=== PATIENT | female | born 1995 | race Caucasian/White ===

== ENCOUNTER → 2017-05-27 16:26 | Outpatient (CLI) | payer BC, SELFPAY ==
[2017-05-27 15:14] VITALS: BP 116/79; BMI 23.4
[2017-05-27 17:35] LABS: AST(SGOT) 8 U/L (15-37); Alanine Aminotransfer ALT/SGPT 15 U/L (13-56); Albumin, Serum 3.8 g/dL (3.2-5.0); Alkaline Phosphatase 74 U/L (45-117); Anion Gap 8 (5-15); BUN 17 mg/dL (7-18); BUN/Creat Ratio 19.7 RATIO (10-20); Calcium,Total 8.6 mg/dL (8.5-10.1); Chloride 101 mmol/L (98-107); Creatinine, Serum 0.86 mg/dL (0.55-1.02); EST Glomerular Filtration Rate 89 mL/min (>60); Est Glom Filt Rate - Afr Amer 108 mL/min (>60); Globulin 3.7 g/dL (2.2-4.2); Glucose 279 mg/dL (74-106); Potassium 3.9 mmol/L (3.5-5.1); Protein, Total 7.5 g/dL (6.4-8.2); Sodium Level 137 mmol/L (136-145)
[2017-05-27 17:44] LABS: Hemoglobin A1c 11.1 % (4.2-6.3)
[2017-05-27 17:48] LABS: Microalbumin,Random Urine 9.6 mg/L (NO RANGE EST.); Microalbumin:Creatinine Ratio 27.8 mg/g CRE (<30 mg/g CRE)
== END ==
PROVIDERS: Visit Provider Nurse Practitioner
DX: E11.9 Type 2 diabetes mellitus without complications (principal)
CPT/HCPCS: 36415; 80053; 82043; 82570; 83036

== ENCOUNTER 2017-12-29 04:12 | Emergency (ER) | payer BC, SELFPAY ==
[2017-12-29 04:13] VITALS: BP 139/98; PULSE 103; RESP 15; TEMP 36.4; O2SAT 100; BMI 22.8
[2017-12-29 05:51] LABS: Bedside Glucose 224 mg/dL (70-110)
[2017-12-29 06:01] LABS: Bacteria 0 SEEN /hpf (None Seen); Mucous, Urine 0 SEEN /hpf (<or=2+); Red Blood Cells-Urine 0 SEEN /hpf (0-5)
[2017-12-29 06:26] LABS: Color, Urine Yellow (Yellow); Glucose, Dipstick 250 mg/dl (Normal); Internal QC Validated? YES +Cl - CLEAR BKGD; Ketone-Dipstick 5 mg/dl (Negative); Leukocyte Esterase-Dipstick 500 /ul (Negative); Nitrite-Dipstick Positive (Negative); Occult Blood-Urine 250 /ul (Negative); Pregnancy, Urine Negative Negative; Protein-Dipstick 500 mg/dl (Negative); Urine Bilirubin Dipstick Negative (Negative); Urine Clarity Cloudy (Clear); Urine Urobilinogen 1 mg/dl (Normal); Urine pH 6.5 (5.0 - 8.0)
[2017-12-29 06:59] LABS: Squamous Epithelial Cells - UA 0-5 SEEN /hpf (5-10); White Blood Cells >100 SEEN /hpf (0-5)
--- NOTE | 2017-12-29 07:20 | ED.VISSUMM ---
- ER Visit Summary Date of Service: 12/29/17 Chief Complaint: Abdominal pain History of Present Illness: The patient is a 22 F presenting with abdominal pain. She states this started tonight. She states the pain has now actually completely resolved. Pain was in the left flank. She had nausea associated with this. She denies vomiting. She denies fever. She has had mild diarrhea. Denies back pain. She has a history of insulin dependent diabetes. Physical Examination: Vitals are stable. Patient is afebrile. Alert no acute distress. HEENT exam is unremarkable. Neck is supple. Lungs are clear and equal bilaterally. Heart is regular rate and rhythm. Abdomen is soft nontender nondistended. No rebound or guarding Back: No CVA tenderness Extremities are unremarkable. Skin is warm and dry. Remainder of exam is unremarkable. Emergency Department Course and Treatment: Patient's pain is completely resolved. Urinalysis shows over 100 white blood cells, positive leukocyte, positive nitrite. HCG negative. Blood sugar was 224. She is feeling improved and is requesting to go home. She was given Macrobid. She has an insulin pump and is advised to continue to monitor her blood sugars at home. She is advised to return to the ED for any worsening complaints. Disposition: Discharge home Impression: UTI This note was generated with [employer] dictation software. It may contain incorrect words, spelling, and punctuation that were not noted in review of the chart prior to signing ED Disposition - Plan for ED Patient: Chief Complaint: Abd Pain Referrals: Jacqui Joaquin, [facility] [Primary Care Provider] -
--- NOTE | 2017-12-29 07:24 | ED.DEP ---
ED Disposition - Plan for ED Patient: Chief Complaint: Abd Pain Instructions: ED UTI Cystitis Female Prescriptions: Nitrofurantoin Macrocrystals [Macrobid] 100 mg PO Q12 #14 capsule Referrals: Jacqui Joaquin NP-C [Primary Care Provider] -
[2017-12-29] MEDS: Nitrofurantoin Macrocrystals 100 MG Capsule PO (07:33)
[2017-12-29 07:34] VITALS: BP 126/71; PULSE 107; O2SAT 98
== END 2017-12-29 07:35 | disposition home or self-care (01) ==
LOC: ED 05:27
PROVIDERS: Emergency Provider Emergency Medicine; PCP Nurse Practitioner
DX: N39.0 Urinary tract infection, site not specified (principal); E11.9 Type 2 diabetes mellitus without complications; Z79.4 Long term (current) use of insulin; Z96.41 Presence of insulin pump (external) (internal)
CPT/HCPCS: 81001; 81025; 82962; 99282

== ENCOUNTER 2018-09-16 20:27 | Observation (INO) | payer BC, SELFPAY ==
[2018-09-16 20:27] VITALS: BMI 23.4
[2018-09-16 20:29] VITALS: BP 119/65; BP 122/72; PULSE 114; PULSE 117; RESP 18; RESP 20; TEMP 36.8; O2SAT 100; BMI 23.3
--- NOTE | 2018-09-16 20:29 | EKG12_ITS ---
Test Reason : CP Blood Pressure : / mmHG Vent. Rate : 114 BPM Atrial Rate : 114 BPM P-R Int : 140 ms QRS Dur : 080 ms QT Int : 350 ms P-R-T Axes : 074 100 059 degrees QTc Int : 482 ms Sinus tachycardia Rightward axis Borderline ECG Confirmed by MUKUND CORTÉS, ZEYNEP ([id number]), food editor TAHMINA JIMÉNEZ ([id number]) on 09/22/2018 1:48:01 PM Referred By: DYLAN Confirmed By:ZEYNEP DUVAL MD
--- NOTE | 2018-09-16 20:30 | ED.RN ---
CALLED FOR EKG PER RN REQUEST, NO OLD EKGS IN MUSE
[2018-09-16 20:40] LABS: Bedside Glucose > 500 mg/dL (70-110)
--- NOTE | 2018-09-16 21:02 | ED.DCSUM_ITS ---
- ER Visit Summary Date of Service: 09/16/18 Chief Complaint: Elevated blood sugar History of Present Illness: The patient is a 23 F history of insulin pen diabetes. Patient states she has not been watching her blood sugars as well as she should. She does take insulin but may have recently been noncompliant with that she should. Her blood sugars today have been over 400. Typically her blood sugars run around 200. She denies any nausea, vomiting, diarrhea or fever. No dysuria. No abdominal pain. Her last menstrual. Was 3 weeks ago. Physical Examination: Young female no acute distress vital signs are stable afebrile. She does not look septic or toxic. H EENT exam unremarkable. Moist weeks membranes. Neck nontender no lymphadenopathy. Lungs to auscultation bilaterally. Heart regular rhythm rate about 110 no murmur. Abdomen soft and nontender normal bowel sounds no peritoneal signs. She is moving all 4 extremities. No edema. Neurovascular intact. Back nontender. Neurologically she is awake alert with no focal motor deficits. Test Results: G sinus tachycardia rate of 114 no acute signs of ischemia or dysrhythmia. White count 11. Hemoglobin 12 no bands. Electrolytes sodium 130. Anion gap 16 glucose 616. Normal creatinine and BUN. Serum systems small consistent with DKA. Occult blood Emergency Department Course and Treatment: Patient will be worked up for possible DKA versus hyperglycemia. She will be started on normal saline 1 L wide open. A second and third liter normal saline. Subcu insulin 20 units. Patient second basic metabolic panel return. Her CO2 decreased at 10 9. Her anion gap increased to 18. And her glucose decreased to 427 from a prior 616. She will be given additional liter of fluid and additional subcu insulin. A repeat BMP will be obtained. I again discussed with the hospitalist. He wants to continue on the current course and reevaluate in another BMP. Treatment Plan: Patient will be admitted. I spoke to the hospitalist Dr. Adamson. He will attempt to correct her sugar and her gap and hope to prevent her from needing an insulin drip and needing to go to the ICU. Disposition: Discharge Impression: Acute DKA History of insulin-dependent diabetes This note was generated with [employer] dictation software. It may contain incorrect words, spelling, and punctuation that were not noted in review of the chart prior to signing ED Disposition - Plan for ED Patient:
[2018-09-16] MEDS: 0.9% Normal Saline 1,000 ML 1000 ML IV (21:08)
[2018-09-16 21:21] LABS: Absolute Lymphocyte Count 1.31 X10^3/ul (0.83-4.51); Absolute Neutrophil Count 9.1 X10^3/uL (2.0-7.7); Basophil# 0.03 X10^3/uL; Basophil% 0.3 % (0-1); Hematocrit 37.7 % (37-47); Hemoglobin 12.9 g/dl (12.0-15.0); Lymphocyte # 1.31 X10^3/ul (4.0); Lymphocyte % 11.9 % (19-41); Mean Corp Hgb Conc 34.2 g/gl (32-36); Mean Corpuscular Hgb 31.6 pg (27.0-32.0); Mean Corpuscular Volume 92.4 fL (81-99); Mean Platelet Vol. 9.8 fl (6.2-12.0); Monocyte# 0.49 X10^3/uL; Monocyte% 4.5 % (0-10); Neutrophil % 82.9 % (47-70); Platelet Count 287 K/mm3 (150-450); RBC Distribution Width CV 12.3 % (11.6-14.6); RBC Distribution Width SD 41.9 fl (35.1-43.9); Red Blood Count 4.08 M/mm3 (4.2-5.4)
[2018-09-16 21:26] LABS: POSITIVE COUNT NO; POSITIVE DIFFERENTIAL NO; POSITIVE MORPHOLOGY NO
[2018-09-16] MEDS: Ketorolac 30 MG/ML Syringe IV (21:37)
[2018-09-16 21:48] LABS: Anion Gap 16 (5-15); BUN 19 mg/dL (7-18); BUN/Creat Ratio 19.4 RATIO (10-20); Calcium,Total 8.9 mg/dL (8.5-10.1); Chloride 98 mmol/L (98-107); Creatinine, Serum 0.98 mg/dL (0.55-1.02); EST Glomerular Filtration Rate 76 mL/min (>60); Est Glom Filt Rate - Afr Amer 92 mL/min (>60); Estimated Creatinine Clearance 71.82 ml/min; Glucose 616 mg/dL (74-106); Sodium Level 130 mmol/L (136-145)
[2018-09-16] MEDS: Ondansetron 4 MG/2 ML Vial IV ×2 (22:11→23:59)
[2018-09-16 22:35] VITALS: BP 109/58; PULSE 107; RESP 16; O2SAT 100
[2018-09-16] MEDS: 0.9% Normal Saline 1,000 ML 999 ML IV (23:37)
[2018-09-16] MEDS: Insulin NPH Human 100 UNITS/ML PEN 20 UNITS SC (23:40)
[2018-09-16 23:43] VITALS: BP 108/57; PULSE 110; RESP 18; O2SAT 100
[2018-09-17] VITALS (14 sets, daily range): BP systolic 93–127; BP diastolic 44–64; PULSE 107–121; RESP 16–27; TEMP 37.1; O2SAT 96–100; BMI 24.6
[2018-09-17] MEDS: Morphine 4 MG/ML Syringe IV (00:39)
[2018-09-17 00:51] LABS: Bedside Glucose 385 mg/dL (70-110)
--- NOTE | 2018-09-17 01:11 | ED.RN ---
LAB CALLED WITH [facility]. CO2 LEVEL 9. DR. AHUMADA MADE AWARE NO NEW ORDERS AT THIS TIME
[2018-09-17 01:12] LABS: Anion Gap 18 (5-15); BUN 19 mg/dL (7-18); Calcium,Total 7.7 mg/dL (8.5-10.1); Chloride 108 mmol/L (98-107); Creatinine, Serum 0.83 mg/dL (0.55-1.02); EST Glomerular Filtration Rate 93 mL/min (>60); Est Glom Filt Rate - Afr Amer 112 mL/min (>60); Glucose 427 mg/dL (74-106); Sodium Level 135 mmol/L (136-145)
[2018-09-17 01:40] LABS: Bedside Glucose 415 mg/dL (70-110)
[2018-09-17] MEDS: 0.9% Normal Saline 1,000 ML 999 ML IV ×3 (01:41→03:55)
[2018-09-17] MEDS: Insulin NPH Human 100 UNITS/ML PEN 10 UNITS SC (01:43)
[2018-09-17 03:21] LABS: Anion Gap 17 (5-15); BUN 19 mg/dL (7-18); BUN/Creat Ratio 24.2 RATIO (10-20); Calcium,Total 7.3 mg/dL (8.5-10.1); Chloride 111 mmol/L (98-107); Creatinine, Serum 0.79 mg/dL (0.55-1.02); EST Glomerular Filtration Rate 98 mL/min (>60); Est Glom Filt Rate - Afr Amer 119 mL/min (>60); Estimated Creatinine Clearance 89.09 ml/min; Glucose 405 mg/dL (74-106); Potassium 5.3 mmol/L (3.5-5.1); Sodium Level 137 mmol/L (136-145)
[2018-09-17] MEDS: Insulin Lispro 100 UNIT/ML INSULN.PEN 30 UNIT SC (03:55)
--- NOTE | 2018-09-17 05:56 | ED.RN ---
lab called with critical lab results. Calcium level 6.5. Dr. Tran made aware no new orders at this time
[2018-09-17 05:57] LABS: Anion Gap 14 (5-15); BUN 17 mg/dL (7-18); BUN/Creat Ratio 23.8 RATIO (10-20); Calcium,Total 6.5 mg/dL (8.5-10.1); Chloride 116 mmol/L (98-107); Creatinine, Serum 0.71 mg/dL (0.55-1.02); EST Glomerular Filtration Rate 110 mL/min (>60); Est Glom Filt Rate - Afr Amer 132 mL/min (>60); Estimated Creatinine Clearance 99.13 ml/min; Glucose 286 mg/dL (74-106); Sodium Level 141 mmol/L (136-145)
[2018-09-17] MEDS: 0.9% Normal Saline 1,000 ML 250 ML IV ×2 (06:55→11:07)
[2018-09-17 07:10] LABS: Bedside Glucose 242 mg/dL (70-110)
[2018-09-17] MEDS: Insulin Lispro 100 UNIT/ML INSULN.PEN 15 UNIT SC (07:31)
[2018-09-17] MEDS: Insulin NPH Human 100 UNITS/ML PEN 15 UNITS SC (07:31)
--- NOTE | 2018-09-17 07:44 | HP.PCM_ITS ---
Problem List (1) Right shoulder pain Status: Acute Qualifiers: Chronicity: acute Qualified Code(s): M25.511 - Pain in right shoulder (2) Hyperglycemia due to type 1 diabetes mellitus Status: Acute History of Present Illness Date of Admission: 09/17/18 Chief Complaint: Hyperglycemia, right shoulder pain The patient is a 23 year old F who was seen in the emergency room at [facility] with a chief complaint of elevated blood sugar and right shoulder pain. Patient is a type I diabetic and has an insulin pump which she found to be malfunctioning today. Patient complained of dull pain in her right shoulder with some lower back pain that started today-she is unsure whether this could be related to her physical activity from work. Evaluation in the emergency room initially included labs which showed an elevated white blood cell count at 11, patient's sodium was 130, anion gap was 16, bicarb was 16, BUN was 19, and glucose was 616. Her acetone level was small. Patient was felt to be in DKA, the etiology of her right shoulder pain was unclear and she was given analgesics in the emergency room with some alleviation of her right shoulder pain. I had a discussion with the attending ER physician concerning whether to admit the patient to ICU and place her on an insulin drip, due to the fact that her anion gap was near a normal range I requested that we give the patient insulin in the emergency room and increase her fluids including the administration of fluid boluses and recheck her BMP to see if we could prevent her being admitted to ICU. I felt that it was likely if the patient was placed on insulin drip that she would likely come off the drip in a matter of hours. Patient was okay with this approach and she was given insulin subcu in the ER-unfortunately this insulin was NPH and not regular insulin. Patient's repeat labs that were done approximately 2 hours later showed an increased anion gap and the patient was given additional insulin and fluid but again, patient was given NPH insulin instead of regular insulin. Patient's third set of BMPs showed a lowering of her blood sugar but continued increased anion gap-it was at this time that I discovered that the patient had actually gotten NPH insulin and I felt that we could continue to give her fluids and give her regular insulin and recheck her labs in approximately 2 hours. Her last BMP which was drawn in the emergency room showed her anion gap to be closed and her blood sugar to be 286. Patient was felt stable to be admitted to PCU with frequent blood sugars and continued high volume IV fluids. Patient was admitted to PCU. Past Medical History Medical History: Medical History (Last Reviewed 05/27/17 @ 15:13 by Rhoda Tim) Diabetes type 1, controlled E10.9 Hearing problem H91.90 Vision problem H54.7 Vitamin deficiency E56.9 Allergies insulin glargine, human recombin. a [From Lantus] Allergy (Verified 09/16/18 20:28) Itching Home Medications: Ambulatory Orders Medication Instructions Recorded FreeStyle Test strips See Dose Instructions .ROUTE 06/18/17 .MEDSUPPLY #550 ea NS insulin lispro (U- 100) 100 See Rx Instructions SC QDAY #20 ml 06/08/18 unit/mL subcutaneous solution Surgical History: no surgical history Psychiatric History: No pertinent psych hx [employer] History: No pertinent BU[employer] history Lives: Spouse/ Significant Other Smoking Status: Never smoker Tobacco Use: Non-smoker Alcohol: Occasional Drugs: None - *Family History Maternal Family History: Family History (Last Reviewed 05/27/17 @ 15:13 by Rhoda Tim) Mother Asthma History Items: No pertinent history Paternal Family History: Family History (Last Reviewed 05/27/17 @ 15:13 by Rhoda Tim) Mother Asthma History Items: Heart Disease Review of Systems Constitutional: Denies: Anorexia, Chills, Fever, Night Sweats, Malaise, Weakness, Weight Change, Fatigue Eyes: Denies: Cataracts, Conjunctivae Inflammation, Double vision, Drainage HEENT: Denies: Difficulty Swallowing, Dysphasia, Ear Pain, Eye Pain, Hearing Changes, Nasal bleeding, Nasal Congestion, Post Nasal Drip Cardiovascular: Denies: Chest Pain, Claudication, Chest Pressure, Chest Tightness, Edema, Heaviness, Palpitations, Paroxysmal Noc. Dyspnea Respiratory: Denies: Cough, Hemoptysis, Pleuritic Pain, Shortness of Breath, Shortness of breath at rest, Shortness of breath upon exertion, Sputum production Gastrointestinal: Denies: Abdominal Pain, Constipation, Diarrhea, Hematemesis, Hematochezia, Nausea, Melena, Vomiting Genitourinary: Denies: Dysuria, Frequency, Hematuria, Hesitancy, Urgency Gynecological: Denies: Breast symptoms Musculoskeletal: Reports: Joint Pain - Right shoulder pain. Denies: Joint stiffness, Joint swelling Skin: Denies: Dryness, Jaundice, Pruritis, Rash Neurological: Denies: Balance problems, Blurred vision, Double vision, Slurred speech, Difficulty swallowing, Focal weakness, Headaches, Incoordination, Numbness, Tingling Psychiatric: Denies: Anxiety, Depression, Homicidal Ideations, Suicidal Ideations Endocrine: Denies: Change in Body Habitus, Heat/ Cold Intolerance, Polydipsia, Polyuria Hematologic/ Lymphatic: Denies: Adenopathy, Anemia, Easy Bruising, Easy Bleeding, Petechiae, Purpura VTE Information - Inpt Only VTE Present on Admission: No VTE Mechan Device Prophylaxis: None VTE Pharm Prophylaxis ordered?: No Reason prophylaxis not ordered:: Treatment Not Indicated Patient Problems: Active and Suspected Problems (Last Reviewed 05/27/17 @ 15:13 by Rhoda Tim) Right shoulder pain (Acute) Hyperglycemia due to type 1 diabetes mellitus (Acute) - Physical Exam General: Alert, Oriented x3, Cooperative, No apparent distress, Well developed, Well nourished HEENT: Atraumatic, PERRLA, EOMI, Normocephalic Oral: Moist Mucosa Neck: Supple, No JVD, Negative Carotid Bruits, No Nuchal Rigidity, Trachea Midline, Thyroid Normal Size and Texture Lungs: Clear to auscultation, Normal air movement, No rhonchi, No wheeze, No rales Cardiovascular: Regular rate, Regular Rhythm, Normal S1, Normal S2, No murmurs, No Ectopic Activity, PMI Normal Abdomen: Bowel Sounds Present, Soft, Non Tender, Non-Distended, No hernias noted Extremities: No clubbing, No cyanosis, No edema, Capillary Refill Less than 3 Seconds Skin: No rashes, No breakdown Musculoskeletal: No Tenderness to Palpation of Joints or Extremities Neurological: Cranial nerves II-XII grossly intact, Neuro grossly intact, Muscle tone normal, Sensory exam intact to light touch and pain Psych/Mental Status: Normal Affect, Appropriate, Alert and oriented to time, place, person, mood and affect Vital Signs Temp Pulse Resp BP Pulse Ox 98.7 F 107 H 18 108/59 L 98 09/17/18 06:55 09/17/18 06:55 09/17/18 06:55 09/17/18 06:55 09/17/18 06:55 Oxygen Delivery Method Room Air Weight: 61.1 kg Body Mass Index (BMI) 24.6 Finger Stick Blood Glucose 415 Laboratory Tests Past 24 Hrs 09/16/18 09/16/18 09/16/18 21:08 21:08 21:08 WBC 11.0 RBC 4.08 L Hgb 12.9 Hct 37.7 MCV 92.4 MCH 31.6 MCHC 34.2 RDW 12.3 RDW Differential 41.9 Plt Count 287 MPV 9.8 Immature Gran % (Auto) 0.400 Neut % (Auto) 82.9 H Lymph % (Auto) 11.9 L [place] % (Auto) 4.5 Eos % (Auto) 0.0 Baso % (Auto) 0.3 Absolute Neuts (auto) 9.1 H Absolute Lymphs (auto) 1.31 Total Counted Not Reportable Sodium 130 L Potassium 5.0 Chloride 98 Carbon Dioxide 16.0 L Anion Gap 16 H BUN 19 H Creatinine 0.98 Estim Creat Clear Calc 71.82 Est GFR (MDRD) Af Amer 92 Est GFR (MDRD) Non-Af 76 BUN/Creatinine Ratio 19.4 Glucose 616 H* Calcium 8.9 Acetone Level SMALL H 09/17/18 09/17/18 09/17/18 00:50 02:56 05:34 WBC RBC Hgb Hct MCV MCH MCHC RDW RDW Differential Plt Count MPV Immature Gran % (Auto) Neut % (Auto) Lymph % (Auto) [place] % (Auto) Eos % (Auto) Baso % (Auto) Absolute Neuts (auto) Absolute Lymphs (auto) Total Counted Sodium 135 L 137 141 Potassium 5.0 5.3 H 4.0 Chloride 108 H 111 H 116 H Carbon Dioxide 9.0 L* 9.0 L* 11.0 L Anion Gap 18 H 17 H 14 BUN 19 H 19 H 17 Creatinine 0.83 0.79 0.71 Estim Creat Clear Calc 84.80 89.09 99.13 Est GFR (MDRD) Af Amer 112 119 132 Est GFR (MDRD) Non-Af 93 98 110 BUN/Creatinine Ratio 23.0 H 24.2 H 23.8 H Glucose 427 H 405 H 286 H Calcium 7.7 L 7.3 L 6.5 L* Acetone Level POC Glucose 09/17/18 09/17/18 09/17/18 07:06 01:35 00:47 POC Glucose 242 H 415 H 385 H 09/16/18 20:35 POC Glucose > 500 H* Assessment/Plan All Active Problems (Last Reviewed 05/27/17 @ 15:13 by Rhoda Tim) Right shoulder pain (Acute) Hyperglycemia due to type 1 diabetes mellitus (Acute) Controlled type 1 diabetes mellitus with microalbuminuria, with long-term current use of insulin (Acute) #1 DKA the patient's anion gap is closed at this time, she will be admitted to PCU with frequent BMPs and blood sugar checks. I will continue high-volume IV fluids, I will place her on NPH insulin with breakfast and supper and insulin before each meal. #2 right shoulder pain-possibly secondary to right shoulder strain, patient's right shoulder discomfort is improved-she was given pain meds in the ER for the shoulder pain. #3 type 1 diabetes Code Visit Inpatient E&M: 15652 Init Hosp L3
[2018-09-17 08:34] LABS: Anion Gap 12 (5-15); BUN 16 mg/dL (7-18); BUN/Creat Ratio 20.1 RATIO (10-20); Calcium,Total 7.1 mg/dL (8.5-10.1); Chloride 114 mmol/L (98-107); EST Glomerular Filtration Rate 96 mL/min (>60); Est Glom Filt Rate - Afr Amer 117 mL/min (>60); Estimated Creatinine Clearance 87.98 ml/min; Glucose 200 mg/dL (74-106); Potassium 4.2 mmol/L (3.5-5.1); Sodium Level 138 mmol/L (136-145)
[2018-09-17 10:00] LABS: Bedside Glucose 128 mg/dL (70-110)
--- NOTE | 2018-09-17 10:56 | CASEMGMT ---
Addendum entered by Fuentes Simon 09/17/18 11:43: Call placed to Dr Del Castillo's office (router setter in [place]) @ [phone]. Confirmation received that pt does have an upcoming appt with Dr Del Castillo on October 16 and it is @ [phone]. Inquired if there are any available appts for pt to be seen earlier d/t pt only has 6 days remaining for Omnipod. There are no appts available prior to October 16. Original Note: RN CM ART INSTALLER CM to room to meet with patient for initial transition planning/care coordination assessment. RN CASSIE introduced self and role at [facility]. Pt voices understanding and consents to assessment at this time. Pt resting in bed in no distress at this time. Pt is A/O at this time and answers all questions appropriately. Care providers, pharmacy, and demographics verified at this time. PCP: Dr Hasmukh Lazo Specialists: Was seeing RADHA Alcalaok/endocrinology. has an appt as a new pt with a new router setter in [place] on October 16. She does not remember this endocrinologists name. She states she only has 6 days remaining for the Omnipad and is trying to get in to see this router setter sooner so she can get it refilled. Preferred Pharmacy: [facility] Insurance: [employer] Prescription Benefit: Yes Living Will/HPOA: does not have LW or HCPOA . Interested in more information and would like to talk to MICHAEL to complete paperwork for HCPOA. MICHAEL Cummings, notified. LNOK: Parents, Bertha and Josef Velazquez Living Arrangements: Lives in an apt with her [place]. Independent. Transportation: [employer] [place]. Denies concerns with transportation. DME: has the following DME: has a glucometer that is working properly and she has all the needed supplies for it. Uses Omnipod insulin system. As stated above, pt states she only has enough for 6 days and trying to get in to see new router setter sooner. Pt states no need for further DME at this time. HHC/SNF: No history of either. Denies needs and no needs identified. Pt wishes to return home and states has no concerns with going home at time of discharge. Pt is currently employed and works at [employer]. Pt states does not smoke or use street drugs. Does drink on occasion. CM to follow for any discharge planning/needs. Pt voices no further concerns/needs at this time. Advised pt to ask for CM if any further questions/concerns/needs arise. Voices understanding. PLAN: Home with rona' support and discharge plans in place. Mica DUNLAP RN CM
[2018-09-17 11:44] LABS: Anion Gap 6 (5-15); BUN 18 mg/dL (7-18); BUN/Creat Ratio 25.2 RATIO (10-20); Chloride 116 mmol/L (98-107); Creatinine, Serum 0.71 mg/dL (0.55-1.02); EST Glomerular Filtration Rate 110 mL/min (>60); Est Glom Filt Rate - Afr Amer 132 mL/min (>60); Estimated Creatinine Clearance 99.13 ml/min; Glucose 191 mg/dL (74-106); Potassium 4.1 mmol/L (3.5-5.1); Sodium Level 140 mmol/L (136-145)
--- NOTE | 2018-09-17 13:57 | CASEMGMT ---
SW spoke with patient regarding advance directives. SW explained documents and she just wanted Healthcare POA. She wanted to take them home with her. Zoila TRAVIS MSW
[2018-09-17] MEDS: Insulin Lispro 100 UNIT/ML INSULN.PEN SQ (14:03)
[2018-09-17 14:11] LABS: Bedside Glucose 259 mg/dL (70-110)
--- NOTE | 2018-09-17 14:22 | CASEMGMT ---
Per pt, she gets the Next [employer] delivery system for her insulin directly from the company and she only has two left but is not able to see her new steam roller operator, Dr. Del Castillo, until 10/16/18. Estefania AGRAWAL CM did try to move up the appt earlier today without success. Pt's previous steam roller operator retired and pt has not Call to [employer] and per rep, they sent pt 3 courtesy pods on 09/11/18 and can overnight her 2 more today but they cannot send anymore than that. The rep states that they will need updated charting/order from an steam roller operator to be able to renew her order and this cannot come from the hospitalist. This RN CASSIE does have a call out to new endocrinology office regarding pods and pt is updated on all at this time, voices understanding. The [email or web address] rep did say that the pt could buy a box of pods for $299 and pt is aware at this time. Pt voices no further questions/concerns/needs at this time. Dr. Flores updated on all at this time, voices understanding. This RN CASSIE did provide pt with list of other in-network endocrinologists to see if she wanted to try and get into another physician earlier, if possible. This RN CASSIE is still awaiting a call from Magdalene's office to see if there is anything they can do to assist pt at this time. Edwardo AGRAWAL CM
--- NOTE | 2018-09-17 14:47 | NURSING ---
Pt's eyelids, hands and feet with edema. Fluids discontinued per Dr. Flores. Pt up in room independently.
--- NOTE | 2018-09-17 15:00 | DCINST_ITS ---
- Discharge Diagnoses Current Active Problems: Current Active and Chronic Problems (Last Reviewed 05/27/17 @ 15:13 by Rhoda Tim) Right shoulder pain (Acute) Hyperglycemia due to type 1 diabetes mellitus (Acute) You will use the following diet at home:: Calorie/Carbohydrate Controlled (specify 1200, 1400, etc) - 1800 Your food should be the consistency of: Regular Your liquids should be the consistency of: Regular/Thin Call your doctor if you observe: - - uncontolled glucose. Allergies/Adverse Reactions: Allergies insulin glargine, human recombin. a [From Lantus] Allergy (Verified 09/16/18 20:28) Itching Medications to take at Discharge FreeStyle Test strips See Dose Instructions .ROUTE .MEDSUPPLY #550 ea NS 06/18/17 insulin lispro (U- 100) 100 unit/mL subcutaneous solution See Rx Instructions SC QDAY #20 ml 06/08/18 Insulin Detemir [Levemir (BKC)] 35 units SC QHS 1 Days #1 flexpen 09/17/18 Insulin Lispro [Humalog KwikPen] 10 unit SC TIDCM 1 Days #1 insuln.pen 09/17/18 [place], Insulin Disposable [Novofine Autocover 30G Needle] 1 each MISCELL. UD #1 box 09/17/18 The following prescriptions were given: Insulin Detemir [Levemir (BKC)] 35 units SC QHS 1 Days #1 flexpen [place], Insulin Disposable [Novofine Autocover 30G Needle] 1 each MISCELL. UD #1 box Insulin Lispro [Humalog KwikPen] 10 unit SC TIDCM 1 Days #1 insuln.pen Primary Care Physician: Narendra Lazo MD [Primary Care Provider] - Within 2 Weeks Test Results: Test results from this visit will be discussed in further detail at your follow- up appointment, if applicable. Please Follow Up With: Shannon Del Castillo MD When: October 16 (or earlier if feasible) Proposed Discharge Date: 09/17/18
--- NOTE | 2018-09-17 15:00 | PCM.DC.SUM ---
Discharge Date and Diagnosis - Problem List Patient Problems: Active and Suspected Problems (Last Reviewed 05/27/17 @ 15:13 by Rhoda Tim) DKA (diabetic ketoacidoses) (Acute) Right shoulder pain (Acute) Hyperglycemia due to type 1 diabetes mellitus (Acute) Date of Admission: 09/17/18 Date of Discharge: 09/17/18 - Primary Discharge Diagnosis Active and Suspected Problems (Last Reviewed 05/27/17 @ 15:13 by Rhoda Tim) DKA (diabetic ketoacidoses) (Acute) Right shoulder pain (Acute) Hyperglycemia due to type 1 diabetes mellitus (Acute) Hospital Course and Treatment Operations: None Procedures: None Summary of Care Provided: The patient is a 23 year old F presents with hyperglycemia. Patient uses the Omni pod for her insulin. Patient been using those for several years. The patient had a one that was not functioning correctly and presented to the emergency room and had a glucose of 616 and did have a positive acetone level. Patient did have positive anion gap as well. Patient was in diabetic ketoacidosis. 7 insulin drip, patient did receive insulin which did not improve her blood sugars as well as result of her anion gap. So plan was for the patient to resume her Omni pod but the patient only has enough to get her through the next couple weeks. Patient was seeing the traffic observer here in [place] but since that endocrinology is left patient did not get an appointment to see another one until later in September. Patient states that she did not have a back-up plan for when she ran out of her pods. Patient will be using her pods until she runs out and then she will receive prescriptions for Levemir as well as prandial insulin. Patient was getting a total of 65units through her OmniPod's been will get the equivalent with the prandial in the basal insulins. It was impressed upon the patient that she needs to be more thorough and following up. Apparently patient had not seen traffic observer here in [place] for over a year. And we did try to see if I could write for a prescription for the Omni pod to get her to the traffic observer appointment. Case management contacted the company and stated that they cannot without a traffic observer note. The patient will need to follow-up with endocrinology to continue to see about using these Omnipods. Patient states that she already has a glucometer, testing strips and lancets. [] Patient Problems: Active and Suspected Problems (Last Reviewed 05/27/17 @ 15:13 by Rhoda Tim) DKA (diabetic ketoacidoses) (Acute) Right shoulder pain (Acute) Hyperglycemia due to type 1 diabetes mellitus (Acute) - Physical Exam General: Alert, No apparent distress HEENT: Atraumatic, Normocephalic Oral: Moist Mucosa, No Gingival or Mucosal Lesions/ Ulcerations Neck: No Nodes, Thyroid Normal Size and Texture Lungs: Clear to auscultation, Normal air movement, No rhonchi, No wheeze Cardiovascular: Regular rate, Regular Rhythm, Normal S1, Normal S2, No murmurs Extremities: No edema, No Calf Tenderness Vital Signs Temp Pulse Resp BP Pulse Ox 37.1 C 110 H 16 97/62 100 09/17/18 12:55 09/17/18 12:55 09/17/18 12:55 09/17/18 12:55 09/17/18 12:55 Oxygen Delivery Method Room Air Weight: 61.1 kg Body Mass Index (BMI) 24.6 Finger Stick Blood Glucose 415 Intake and Output for Last 24 Hours 09/15/18 09/16/18 09/17/18 23:59 23:59 23:59 Intake Total 2736 / 2736 Balance 2736 / 2736 Laboratory Tests Past 24 Hrs 09/16/18 09/16/18 09/16/18 21:08 21:08 21:08 WBC 11.0 RBC 4.08 L Hgb 12.9 Hct 37.7 MCV 92.4 MCH 31.6 MCHC 34.2 RDW 12.3 RDW Differential 41.9 Plt Count 287 MPV 9.8 Immature Gran % (Auto) 0.400 Neut % (Auto) 82.9 H Lymph % (Auto) 11.9 L [place] % (Auto) 4.5 Eos % (Auto) 0.0 Baso % (Auto) 0.3 Absolute Neuts (auto) 9.1 H Absolute Lymphs (auto) 1.31 Total Counted Not Reportable Sodium 130 L Potassium 5.0 Chloride 98 Carbon Dioxide 16.0 L Anion Gap 16 H BUN 19 H Creatinine 0.98 Estim Creat Clear Calc 71.82 Est GFR (MDRD) Af Amer 92 Est GFR (MDRD) Non-Af 76 BUN/Creatinine Ratio 19.4 Glucose 616 H* Calcium 8.9 Acetone Level SMALL H 09/17/18 09/17/18 09/17/18 00:50 02:56 05:34 WBC RBC Hgb Hct MCV MCH MCHC RDW RDW Differential Plt Count MPV Immature Gran % (Auto) Neut % (Auto) Lymph % (Auto) [place] % (Auto) Eos % (Auto) Baso % (Auto) Absolute Neuts (auto) Absolute Lymphs (auto) Total Counted Sodium 135 L 137 141 Potassium 5.0 5.3 H 4.0 Chloride 108 H 111 H 116 H Carbon Dioxide 9.0 L* 9.0 L* 11.0 L Anion Gap 18 H 17 H 14 BUN 19 H 19 H 17 Creatinine 0.83 0.79 0.71 Estim Creat Clear Calc 84.80 89.09 99.13 Est GFR (MDRD) Af Amer 112 119 132 Est GFR (MDRD) Non-Af 93 98 110 BUN/Creatinine Ratio 23.0 H 24.2 H 23.8 H Glucose 427 H 405 H 286 H Calcium 7.7 L 7.3 L 6.5 L* Acetone Level 09/17/18 09/17/18 07:47 11:12 WBC RBC Hgb Hct MCV MCH MCHC RDW RDW Differential Plt Count MPV Immature Gran % (Auto) Neut % (Auto) Lymph % (Auto) [place] % (Auto) Eos % (Auto) Baso % (Auto) Absolute Neuts (auto) Absolute Lymphs (auto) Total Counted Sodium 138 140 Potassium 4.2 4.1 Chloride 114 H 116 H Carbon Dioxide 12.0 L 18.0 L Anion Gap 12 6 BUN 16 18 Creatinine 0.80 0.71 Estim Creat Clear Calc 87.98 99.13 Est GFR (MDRD) Af Amer 117 132 Est GFR (MDRD) Non-Af 96 110 BUN/Creatinine Ratio 20.1 H 25.2 H Glucose 200 H 191 H Calcium 7.1 L 7.0 L Acetone Level POC Glucose 09/17/18 09/17/18 09/17/18 14:00 09:55 07:06 POC Glucose 259 H 128 H 242 H 09/17/18 09/17/18 09/16/18 01:35 00:47 20:35 POC Glucose 415 H 385 H > 500 H* Discharge Diet: 1800 Calorie Control Diet Call your doctor if you observe: - - uncontolled glucose. Home Medications: Medications to take at Discharge FreeStyle Test strips See Dose Instructions .ROUTE .MEDSUPPLY #550 ea NS 06/18/17 insulin lispro (U- 100) 100 unit/mL subcutaneous solution See Rx Instructions SC QDAY #20 ml 06/08/18 Insulin Detemir [Levemir (BKC)] 35 units SC QHS 1 Days #1 flexpen 09/17/18 Insulin Lispro [Humalog KwikPen] 10 unit SC TIDCM 1 Days #1 insuln.pen 09/17/18 [place], Insulin Disposable [Novofine Autocover 30G Needle] 1 each MISCELL. UD #1 box 09/17/18 Following Prescrptions Were Given to Patient: Insulin Detemir [Levemir (BKC)] 35 units SC QHS 1 Days #1 flexpen [place], Insulin Disposable [Novofine Autocover 30G Needle] 1 each MISCELL. UD #1 box Insulin Lispro [Humalog KwikPen] 10 unit SC TIDCM 1 Days #1 insuln.pen Primary Care Physician: Narendra Lazo MD [Primary Care Provider] - Within 2 Weeks Please Follow Up With: Shannon Del Castillo MD When: October 16 (or earlier if feasible) Disposition: Home Minutes spent on discharge:: 35 Patient Condition:: Good Medical Necessity - Tobacco Use Smoking Status: Never smoker Tobacco Use: Non-smoker Meaningful Use Info Meaningful Use Diagnoses (Choose all that apply): None applicable Code Visit OBSV E&M: 56820 Observation care discharge
--- NOTE | 2018-09-17 15:05 | DS.PCM_ITS ---
Discharge Date and Diagnosis - Problem List Patient Problems: Active and Suspected Problems (Last Reviewed 05/27/17 @ 15:13 by Rhoda Tim) DKA (diabetic ketoacidoses) (Acute) Right shoulder pain (Acute) Hyperglycemia due to type 1 diabetes mellitus (Acute) Date of Admission: 09/17/18 Date of Discharge: 09/17/18 - Primary Discharge Diagnosis Active and Suspected Problems (Last Reviewed 05/27/17 @ 15:13 by Rhoda Tim ) DKA (diabetic ketoacidoses) (Acute) Right shoulder pain (Acute) Hyperglycemia due to type 1 diabetes mellitus (Acute) Hospital Course and Treatment Operations: None Procedures: None Summary of Care Provided: The patient is a 23 year old F presents with hyperglycemia. Patient uses the Omni pod for her insulin. Patient been using those for several years. The patient had a one that was not functioning correctly and presented to the emergency room and had a glucose of 616 and did have a positive acetone level. Patient did have positive anion gap as well. Patient was in diabetic ketoacidosis. 7 insulin drip, patient did receive insulin which did not improve her blood sugars as well as result of her anion gap. So plan was for the patient to resume her Omni pod but the patient only has enough to get her through the next couple weeks. Patient was seeing the metal grinder here in [place] but since that endocrinology is left patient did not get an appointment to see another one until later in September. Patient states that she did not have a back-up plan for when she ran out of her pods. Patient will be using her pods until she runs out and then she will receive prescriptions for Levemir as well as prandial insulin. Patient was getting a total of 65units through her OmniPod's been will get the equivalent with the prandial in the basal insulins. It was impressed upon the patient that she needs to be more thorough and following up. Apparently patient had not seen metal grinder here in [place] for over a year. And we did try to see if I could write for a prescription for the Omni pod to get her to the metal grinder appointment. Case management contacted the company and stated that they cannot without a metal grinder note. The patient will need to follow-up with endocrinology to continue to see about using these Omnipods. Patient states that she already has a glucometer, testing strips and lancets. [] Patient Problems: Active and Suspected Problems (Last Reviewed 05/27/17 @ 15:13 by Rhoda Tim) DKA (diabetic ketoacidoses) (Acute) Right shoulder pain (Acute) Hyperglycemia due to type 1 diabetes mellitus (Acute) - Physical Exam General: Alert, No apparent distress HEENT: Atraumatic, Normocephalic Oral: Moist Mucosa, No Gingival or Mucosal Lesions/ Ulcerations Neck: No Nodes, Thyroid Normal Size and Texture Lungs: Clear to auscultation, Normal air movement, No rhonchi, No wheeze Cardiovascular: Regular rate, Regular Rhythm, Normal S1, Normal S2, No murmurs Extremities: No edema, No Calf Tenderness Vital Signs Temp Pulse Resp BP Pulse Ox 37.1 C 110 H 16 97/62 100 09/17/18 12:55 09/17/18 12:55 09/17/18 12:55 09/17/18 12:55 09/17/18 12:55 Oxygen Delivery Method Room Air Weight: 61.1 kg Body Mass Index (BMI) 24.6 Finger Stick Blood Glucose 415 Intake and Output for Last 24 Hours 09/15/18 09/16/18 09/17/18 23:59 23:59 23:59 Intake Total 2736 / 2736 Balance 2736 / 2736 Laboratory Tests Past 24 Hrs 09/16/18 09/16/18 09/16/18 21:08 21:08 21:08 WBC 11.0 RBC 4.08 L Hgb 12.9 Hct 37.7 MCV 92.4 MCH 31.6 MCHC 34.2 RDW 12.3 RDW Differential 41.9 Plt Count 287 MPV 9.8 Immature Gran % (Auto) 0.400 Neut % (Auto) 82.9 H Lymph % (Auto) 11.9 L [place] % (Auto) 4.5 Eos % (Auto) 0.0 Baso % (Auto) 0.3 Absolute Neuts (auto) 9.1 H Absolute Lymphs (auto) 1.31 Total Counted Not Reportable Sodium 130 L Potassium 5.0 Chloride 98 Carbon Dioxide 16.0 L Anion Gap 16 H BUN 19 H Creatinine 0.98 Estim Creat Clear Calc 71.82 Est GFR (MDRD) Af Amer 92 Est GFR (MDRD) Non-Af 76 BUN/Creatinine Ratio 19.4 Glucose 616 H* Calcium 8.9 Acetone Level SMALL H 09/17/18 09/17/18 09/17/18 00:50 02:56 05:34 WBC RBC Hgb Hct MCV MCH MCHC RDW RDW Differential Plt Count MPV Immature Gran % (Auto) Neut % (Auto) Lymph % (Auto) [place] % (Auto) Eos % (Auto) Baso % (Auto) Absolute Neuts (auto) Absolute Lymphs (auto) Total Counted Sodium 135 L 137 141 Potassium 5.0 5.3 H 4.0 Chloride 108 H 111 H 116 H Carbon Dioxide 9.0 L* 9.0 L* 11.0 L Anion Gap 18 H 17 H 14 BUN 19 H 19 H 17 Creatinine 0.83 0.79 0.71 Estim Creat Clear Calc 84.80 89.09 99.13 Est GFR (MDRD) Af Amer 112 119 132 Est GFR (MDRD) Non-Af 93 98 110 BUN/Creatinine Ratio 23.0 H 24.2 H 23.8 H Glucose 427 H 405 H 286 H Calcium 7.7 L 7.3 L 6.5 L* Acetone Level 09/17/18 09/17/18 07:47 11:12 WBC RBC Hgb Hct MCV MCH MCHC RDW RDW Differential Plt Count MPV Immature Gran % (Auto) Neut % (Auto) Lymph % (Auto) [place] % (Auto) Eos % (Auto) Baso % (Auto) Absolute Neuts (auto) Absolute Lymphs (auto) Total Counted Sodium 138 140 Potassium 4.2 4.1 Chloride 114 H 116 H Carbon Dioxide 12.0 L 18.0 L Anion Gap 12 6 BUN 16 18 Creatinine 0.80 0.71 Estim Creat Clear Calc 87.98 99.13 Est GFR (MDRD) Af Amer 117 132 Est GFR (MDRD) Non-Af 96 110 BUN/Creatinine Ratio 20.1 H 25.2 H Glucose 200 H 191 H Calcium 7.1 L 7.0 L Acetone Level POC Glucose 09/17/18 09/17/18 09/17/18 14:00 09:55 07:06 POC Glucose 259 H 128 H 242 H 09/17/18 09/17/18 09/16/18 01:35 00:47 20:35 POC Glucose 415 H 385 H > 500 H* Discharge Diet: 1800 Calorie Control Diet Call your doctor if you observe: - - uncontolled glucose. Home Medications: Medications to take at Discharge FreeStyle Test strips See Dose Instructions .ROUTE .MEDSUPPLY #550 ea NS 06/18/17 insulin lispro (U- 100) 100 unit/mL subcutaneous solution See Rx Instructions SC QDAY #20 ml 06/08/18 Insulin Detemir [Levemir (BKC)] 35 units SC QHS 1 Days #1 flexpen 09/17/18 Insulin Lispro [Humalog KwikPen] 10 unit SC TIDCM 1 Days #1 insuln.pen 09/17/18 [place], Insulin Disposable [Novofine Autocover 30G Needle] 1 each MISCELL. UD #1 box 09/17/18 Following Prescrptions Were Given to Patient: Insulin Detemir [Levemir (BKC)] 35 units SC QHS 1 Days #1 flexpen [place], Insulin Disposable [Novofine Autocover 30G Needle] 1 each MISCELL. UD #1 box Insulin Lispro [Humalog KwikPen] 10 unit SC TIDCM 1 Days #1 insuln.pen Primary Care Physician: Narendra Lazo MD [Primary Care Provider] - Within 2 Weeks Please Follow Up With: Shannon Del Castillo MD When: October 16 (or earlier if feasible) Disposition: Home Minutes spent on discharge:: 35 Patient Condition:: Good Medical Necessity - Tobacco Use Smoking Status: Never smoker Tobacco Use: Non-smoker Meaningful Use Info Meaningful Use Diagnoses (Choose all that apply): None applicable Code Visit OBSV E&M: 06069 Observation care discharge
[2018-09-17 15:23] LABS: Anion Gap 10 (5-15); BUN 20 mg/dL (7-18); BUN/Creat Ratio 25.5 RATIO (10-20); Chloride 114 mmol/L (98-107); Creatinine, Serum 0.78 mg/dL (0.55-1.02); EST Glomerular Filtration Rate 98 mL/min (>60); Est Glom Filt Rate - Afr Amer 119 mL/min (>60); Estimated Creatinine Clearance 90.24 ml/min; Glucose 295 mg/dL (74-106); Potassium 4.1 mmol/L (3.5-5.1); Sodium Level 140 mmol/L (136-145)
== END 2018-09-17 15:31 | disposition home or self-care (01) ==
LOC: ED 21:19 → PCU 09-17 08:19
PROVIDERS: Admitting Provider Internal Medicine; Emergency Provider Emergency Medicine; Family Provider Family Medicine; PCP Family Medicine
DX: E10.10 Type 1 diabetes mellitus with ketoacidosis without coma (principal); T85.694A Other mechanical complication of insulin pump, initial encounter; Z79.4 Long term (current) use of insulin; M25.511 Pain in right shoulder
CPT/HCPCS: 36415; 80048; 82009; 82962; 85025; 93005; 96361; 96374; 96375; 96376; 99218; 99285; J7030; A4216; G0378; J2405

== ENCOUNTER → 2018-09-19 | Outpatient (CLI) | payer BC, SELFPAY ==
[2018-09-17 06:52] VITALS: BMI 24.6
[2018-09-19 10:58] LABS: Anion Gap 7 (5-15); BUN 12 mg/dL (7-18); BUN/Creat Ratio 18.6 RATIO (10-20); Calcium,Total 8.5 mg/dL (8.5-10.1); Chloride 104 mmol/L (98-107); Creatinine, Serum 0.64 mg/dL (0.55-1.02); EST Glomerular Filtration Rate 123 mL/min (>60); Est Glom Filt Rate - Afr Amer 149 mL/min (>60); Glucose 325 mg/dL (74-106); Magnesium 1.5 mg/dL (1.6-2.6); Sodium Level 137 mmol/L (136-145)
[2018-09-19 11:02] LABS: PTHIN 27.9 pg/mL (18.4-80.1)
== END | disposition home or self-care (01) ==
LOC: MFPLAB 09:23
PROVIDERS: Family Provider Family Medicine; PCP Family Medicine; Referring Provider Family Medicine; Visit Provider Family Medicine
DX: E83.51 Hypocalcemia (principal)
CPT/HCPCS: 36415; 80048; 82330; 83735; 83970

== ENCOUNTER → 2018-10-30 | Outpatient (CLI) | payer BC, SELFPAY ==
[2018-09-17 06:52] VITALS: BMI 24.6
[2018-10-30 08:50] LABS: Microalbumin,Random Urine 44.3 mg/L (NO RANGE EST.); Microalbumin:Creatinine Ratio 25.2 mg/g CRE (<30 mg/g CRE)
[2018-10-30 09:02] LABS: ALB/GLOB Ratio 1.1 RATIO (0.9-2.4); AST(SGOT) 9 U/L (15-37); Alanine Aminotransfer ALT/SGPT 10 U/L (13-56); Albumin, Serum 3.7 g/dL (3.2-5.0); Alkaline Phosphatase 61 U/L (45-117); Anion Gap 5 (5-15); BUN 22 mg/dL (7-18); BUN/Creat Ratio 30.6 RATIO (10-20); Calcium,Total 8.7 mg/dL (8.5-10.1); Chloride 105 mmol/L (98-107); Creatinine, Serum 0.72 mg/dL (0.55-1.02); EST Glomerular Filtration Rate 109 mL/min (>60); Est Glom Filt Rate - Afr Amer 132 mL/min (>60); Globulin 3.3 g/dL (2.2-4.2); Glucose 202 mg/dL (74-106); Potassium 3.8 mmol/L (3.5-5.1); Sodium Level 139 mmol/L (136-145); Thyroid Stim Hormone (TSH) 2.13 uIU/mL (0.358-3.74)
[2018-10-30 09:50] LABS: Vitamin D,25 Hydroxy 16.5 ng/mL (29.95-100.01)
== END | disposition home or self-care (01) ==
LOC: LAB 07:57
PROVIDERS: Family Provider Family Medicine; PCP Family Medicine; Referring Provider Internal Medicine Endocrinology, Diabetes & Metabolism; Visit Provider Internal Medicine Endocrinology, Diabetes & Metabolism
DX: E10.65 Type 1 diabetes mellitus with hyperglycemia (principal)
CPT/HCPCS: 36415; 80053; 82043; 82306; 82570; 84443

== ENCOUNTER → 2020-02-04 | Outpatient (CLI) | payer BC, SELFPAY ==
[2020-01-22 08:25] VITALS: BMI 21.2
== END | disposition home or self-care (01) ==
LOC: LABSPEC 11:09
PROVIDERS: PCP Family Medicine; Referring Provider Family Medicine; Visit Provider Family Medicine
DX: R50.9 Fever, unspecified (principal)
CPT/HCPCS: 87635; U0003

== ENCOUNTER → 2020-02-08 13:22 | Outpatient (CLI) | payer BC, SELFPAY ==
[2020-01-22 08:25] VITALS: BMI 21.2
--- NOTE | 2020-02-08 13:27 | RAD_ITS ---
STUDY: X-RAY CHEST REASON FOR EXAM: Female, 24 years old. cough TECHNIQUE: PA and lateral views of the chest. COMPARISON: None. FINDINGS: Cardiac silhouette unremarkable. Pulmonary vascularity unremarkable. Aorta unremarkable. No focal patchy airspace opacities. No pleural effusions. Upper abdomen unremarkable. Osseous structures intact. No pneumothorax. RAD/Chest PA and Lateral IMPRESSION: No acute cardiopulmonary findings Electronically Signed: Ramin Yang DO at 11:51 EDT Tel , Service support ,
[2020-02-08 15:35] LABS: Absolute Lymphocyte Count 0.91 X10^3/uL (0.83-4.51); Absolute Neutrophil Count 6.3 X10^3/uL (2.0-7.7); Basophil# 0.04 X10^3/uL; Basophil% 0.5 % (0-1); Eosinophil# 0.01 X10^3/uL; Eosinophils% 0.1 % (0-5); Hematocrit 40.5 % (37-47); Hemoglobin 13.2 g/dL (12.0-15.0); Lymphocyte # 0.91 X10^3/ul (4.0); Lymphocyte % 11.2 % (19-41); Mean Corp Hgb Conc 32.6 g/dL (32-36); Mean Platelet Vol. 10.4 fl (6.2-12.0); Monocyte# 0.88 X10^3/uL; Monocyte% 10.8 % (0-10); NRBC Flagged by Analyzer 0 % (0-5); Neutrophil # 6.26 X10^3/uL (2.7-7.7); Neutrophil % 76.7 % (47-70); Platelet Count 205 K/mm3 (150-450); RBC Distribution Width CV 12.2 % (11.6-14.6); RBC Distribution Width SD 41.5 fl (35.1-43.9); White Blood Count 8.2 K/mm3 (4.4-11.0)
== END ==
PROVIDERS: PCP Family Medicine; Referring Provider Family Medicine; Visit Provider Family Medicine
DX: R05 Cough (principal)
CPT/HCPCS: 36415; 71046; 85025

== ENCOUNTER 2020-04-25 18:11 | Inpatient (IN) | payer BC, SELFPAY ==
[2020-01-22 08:25] VITALS: BMI 21.2
[2020-04-25 18:12] VITALS: BP 138/75; PULSE 130; RESP 16; TEMP 36.6; O2SAT 100; BMI 22.8
--- NOTE | 2020-04-25 18:25 | ED.VIS.GEN ---
History of Present Illness Chief Complaint: Complaint Informant: Patient Onset: Days Context: Gradual Onset Timing: Continuous Current Severity: Moderate Maximum Severity: Moderate Narrative: The patient is a 24-year-old female who is an insulin-dependent diabetic that presents to the emergency department fever. Patient states that last week, she was diagnosed with urinary tract infection. She has been on Bactrim now for 3 full days. She states over the past 2 nights, she is had fever as high as 103. She admits to chills and generalized malaise. She states that also been having elevated blood sugar. She is had mild nausea. She denies any flank pain. She denies abdominal pain. She does have an insulin pump. She states that she discussed this with her primary care and she was referred in for further evaluation due to concern for pyelonephritis. Prior similar symptoms: No Recent Illness/Hospitalization: No Past Medical History - Allergies and Home Meds Allergies/Adverse Reactions: Allergies insulin glargine, human recombin. a [From Lantus] Allergy (Verified 04/25/20 18:12) Itching Primary Care Physician: Narendra Lazo MD [Primary Care Provider] - Prior records reviewed: Yes Past Medical History: - - Diabetes Surgical History: no surgical history Smoking Status: Never smoker - Family History Maternal Family History: Family History (Last Reviewed 01/22/20 @ 09:[address] Ilia Mendoza MD) Mother Asthma Family History: Reports: No pertinent history Paternal Family History: Family History (Last Reviewed 01/22/20 @ 09:[address] Ilia Mendoza MD) Mother Asthma Family History: Reports: Heart Disease Review of Systems General: Reports: Fever, Malaise. Denies: Chills, Sweats Eyes: Denies: Visual changes - bilaterally, Diplopia ENT: Denies: Rhinorrhea, Sore throat Cardiovascular: Denies: Chest pain, Palpitations Respiratory: Denies: Dyspnea, Cough, Dyspnea on exertion Gastrointestinal: Reports: Nausea. Denies: Abdominal pain, Vomiting, Diarrhea, Melena, Hematochezia Genitourinary: Reports: Frequency. Denies: Dysuria, Hematuria Musculoskeletal: Denies: Back pain, Extremity Pain Skin: Denies: Rash, Wounds Neurological: Denies: Headache, Weakness, Numbness Endocrine: Reports: Polyuria Physical Exam Vital Signs/Narrative: Vital Signs Temp Pulse Resp BP Pulse Ox 04/25/20 18:12 97.8 F 130 H 16 138/75 H 100 Inital Vital Signs reviewed: Yes General: Well nourished, Well developed, No Acute Distress Head: Normocephalic, Atraumatic Eyes: Perrl, EOMI ENT: Moist mucous membranes, No rhinorrhea Neck: Supple, Nontender Cardiovascular: Regular rate, Regular rhythm, No murmurs Respiratory: No distress, CTA bilaterally, Chest nontender Abdomen: Soft, Nontender, Nondistended, Normal bowel sounds Back: Nontender, Normal Inspection Extremities: Nontender, No edema Skin: Normal color, No rash Neurological: Alert, Oriented x3, Cranial nerves II-XII grossly intact, Normal Strength, Normal Sensation Psychological: Normal affect, Normal Mood Diagnostic/Tx/Re-eval Clinical Impression(s) from Imaging Studies Abdomen/Pelvis CT 04/25/20 19:57 IMPRESSION: Abnormal appearance of the right kidney most consistent with pyelonephritis. However the findings are nonspecific and recommend correlation with urinalysis. Electronically Signed: Edvin Webster MD at 20:43 EST , Service support , Abnormal Lab Results 04/25/20 04/25/20 04/25/20 17:50 17:50 17:50 WBC 6.7 RBC 3.39 L Hgb 10.5 L Hct 31.3 L MCV 92.3 MCH 31.0 MCHC 33.5 RDW Std Deviation 44.1 H RDW Coeff of [place] 13.3 Plt Count 232 MPV 9.9 Immature Gran % (Auto) 0.800 Neut % (Auto) 75.6 H Lymph % (Auto) 13.2 L [place] % (Auto) 10.1 H Eos % (Auto) 0.0 Baso % (Auto) 0.3 Absolute Neuts (auto) 5.0 Absolute Lymphs (auto) 0.88 Nucleated RBC % 0 Sodium 134 L Potassium 3.9 Chloride 104 Carbon Dioxide 20.0 L Anion Gap 10 BUN 12 Creatinine 0.82 Estim Creat Clear Calc 85.11 Est GFR (MDRD) Af Amer 112 Est GFR (MDRD) Non-Af 93 BUN/Creatinine Ratio 14.7 Glucose 261 H Lactic Acid 1.2 Calcium 8.3 L Total Bilirubin 0.30 AST 8 L ALT 12 L Alkaline Phosphatase 70 Total Protein 6.5 Albumin 2.7 L Globulin 3.8 Albumin/Globulin Ratio 0.7 L Urine Color Urine Clarity Urine pH Ur Specific [place] Urine Protein Urine Glucose (UA) Urine Ketones Urine Occult Blood Urine Nitrite Urine Bilirubin Urine Urobilinogen Ur Leukocyte Esterase Urine RBC Urine WBC Ur Squamous Epith Cells Urine Bacteria Urine Mucus Urine Test Acetone Level POC Glucose 04/25/20 04/25/20 04/25/20 17:50 17:50 20:20 WBC RBC Hgb Hct MCV MCH MCHC RDW Std Deviation RDW Coeff of [place] Plt Count MPV Immature Gran % (Auto) Neut % (Auto) Lymph % (Auto) [place] % (Auto) Eos % (Auto) Baso % (Auto) Absolute Neuts (auto) Absolute Lymphs (auto) Nucleated RBC % Sodium Potassium Chloride Carbon Dioxide Anion Gap BUN Creatinine Estim Creat Clear Calc Est GFR (MDRD) Af Amer Est GFR (MDRD) Non-Af BUN/Creatinine Ratio Glucose Lactic Acid Calcium Total Bilirubin AST ALT Alkaline Phosphatase Total Protein Albumin Globulin Albumin/Globulin Ratio Urine Color Yellow Urine Clarity Clear Urine pH 6.0 Ur Specific [place] 1.010 Urine Protein 30 H Urine Glucose (UA) 1000 H Urine Ketones 150 H Urine Occult Blood 10 H Urine Nitrite Negative Urine Bilirubin Negative Urine Urobilinogen Normal Ur Leukocyte Esterase 25 H Urine RBC 0 SEEN Urine WBC 0-5 SEEN Ur Squamous Epith Cells 5-10 SEEN Urine Bacteria RARE Urine Mucus 0 SEEN Urine Test Negative Acetone Level SMALL H POC Glucose 231 H - Medical Decision Making Patient presents with intermittent fevers. She has been on antibiotics for 72 hours. I am concerned for pyelonephritis. Screening labs are obtained. Her urine does not show any significant infection, but culture was added. She was covered with IV Rocephin. She does have some ketones in her urine and a small amount of ketones in her blood. Her lactic acid was negative. Patient underwent CT which does show evidence of pyelonephritis of the right kidney. She has failed outpatient treatment and is an insulin-dependent diabetic, I do feel that she is going to require admission. The patient was discussed with the hospitalist. Impression 1. Pyelonephritis ED Disposition - Plan for ED Patient: Referrals: Narendra Lazo MD [Primary Care Provider] -
[2020-04-25] MEDS: 0.9% Normal Saline 1,000 ML 1000 ML IV ×2 (19:04→20:17)
[2020-04-25 19:10] LABS: Mucous, Urine 0 SEEN /hpf (<or=2+); Red Blood Cells-Urine 0 SEEN /hpf (0-5)
[2020-04-25 19:14] LABS: Absolute Lymphocyte Count 0.88 X10^3/uL (0.83-4.51); Basophil# 0.02 X10^3/uL; Basophil% 0.3 % (0-1); Hematocrit 31.3 % (37-47); Hemoglobin 10.5 g/dL (12.0-15.0); Lymphocyte # 0.88 X10^3/ul (4.0); Lymphocyte % 13.2 % (19-41); Mean Corp Hgb Conc 33.5 g/dL (32-36); Mean Corpuscular Volume 92.3 fL (81-99); Mean Platelet Vol. 9.9 fl (6.2-12.0); Monocyte# 0.67 X10^3/uL; Monocyte% 10.1 % (0-10); NRBC Flagged by Analyzer 0 % (0-5); Neutrophil # 5.03 X10^3/uL (2.7-7.7); Neutrophil % 75.6 % (47-70); Platelet Count 232 K/mm3 (150-450); RBC Distribution Width CV 13.3 % (11.6-14.6); RBC Distribution Width SD 44.1 fl (35.1-43.9); Red Blood Count 3.39 M/mm3 (4.2-5.4); White Blood Count 6.7 K/mm3 (4.4-11.0)
[2020-04-25 19:43] LABS: ALB/GLOB Ratio 0.7 RATIO (0.9-2.4); AST(SGOT) 8 U/L (15-37); Alanine Aminotransfer ALT/SGPT 12 U/L (13-56); Albumin, Serum 2.7 g/dL (3.2-5.0); Alkaline Phosphatase 70 U/L (45-117); Anion Gap 10 (5-15); BUN 12 mg/dL (7-18); BUN/Creat Ratio 14.7 RATIO (10-20); Calcium,Total 8.3 mg/dL (8.5-10.1); Chloride 104 mmol/L (98-107); Creatinine, Serum 0.82 mg/dL (0.55-1.02); EST Glomerular Filtration Rate 93 mL/min (>60); Est Glom Filt Rate - Afr Amer 112 mL/min (>60); Estimated Creatinine Clearance 85.11 ml/min; Globulin 3.8 g/dL (2.2-4.2); Glucose 261 mg/dL (74-106); Potassium 3.9 mmol/L (3.5-5.1); Protein, Total 6.5 g/dL (6.4-8.2); Sodium Level 134 mmol/L (136-145)
[2020-04-25 19:44] LABS: Color, Urine Yellow (Yellow); Glucose, Dipstick 1000 mg/dl (Normal); Leukocyte Esterase-Dipstick 25 /ul (Negative); Nitrite-Dipstick Negative (Negative); Occult Blood-Urine 10 /ul (Negative); Protein-Dipstick 30 mg/dl (Negative); Urine Bilirubin Dipstick Negative (Negative); Urine Clarity Clear (Clear); Urine Urobilinogen Normal (Normal)
[2020-04-25 19:54] LABS: Lactic Acid 1.2 mmol/L (0.4-1.9)
[2020-04-25 19:56] LABS: Ketone-Dipstick 150 mg/dl (Negative)
[2020-04-25 19:57] LABS: Squamous Epithelial Cells - UA 5-10 SEEN /hpf (5-10)
--- NOTE | 2020-04-25 19:57 | CT_ITS ---
STUDY: CT ABDOMEN AND PELVIS WITH CONTRAST REASON FOR EXAM: Female, 24 years old. Polynephritis. Hx of Type 1 diabetes and current UTI RADIATION DOSAGE (If Supplied By Facility): CTDIvol = ( 9.15 ) mGy, DLP = ( 800.39 ) mGycm TECHNIQUE: Transaxial images were obtained from the dome of the diaphragm to the symphysis pubis without oral contrast. IV 100mL Isovue-300 was administered. Sagittal and coronal images were reconstructed. Individualized dose optimization techniques were used for this CT. COMPARISON: None. FINDINGS: The visualized lung bases are unremarkable. The visualized portions of the heart are within normal limits. Normal liver. Normal gallbladder and extrahepatic biliary system. Normal spleen. Normal pancreas. Normal bilateral adrenal glands. There is subtle abnormal appearance of the right kidney which has heterogeneous decreased enhancement when compared to the left. Right kidney has indistinct cortical medullary junctions. There is mild perinephric stranding. There is mild enhancing thickening of the wall of the right renal pelvis and ureter. The findings are nonspecific but most consistent with pyelonephritis. Correlate with urinalysis. Normal left kidney. Evaluation of the GI tract is limited by absence of oral contrast. Cannot exclude stomach wall thickening. No dilated loops of bowel or evidence for obstruction. Cannot exclude segmental thickening of the guo of the small or large bowel. Cannot exclude enteritis or colitis. Moderate diffuse fecal retention. Appendix within normal limits. Normal abdominal aorta. Normal inferior vena cava. Normal retroperitoneum. Normal urinary bladder. Normal visualized uterus. In the pelvis there is some free fluid. There appears to be an enhancing, involuting left ovarian cyst measuring 2 cm. Normal abdominal wall. Normal osseous structures. CT/Abdomen/Pelvis W IV Cont ONLY IMPRESSION: Abnormal appearance of the right kidney most consistent with pyelonephritis. However the findings are nonspecific and recommend correlation with urinalysis. Electronically Signed: Edvin Webster MD at 20:43 EST , Service support ,
[2020-04-25 19:58] LABS: Bacteria RARE /hpf (None Seen); White Blood Cells 0-5 SEEN /hpf (0-5)
[2020-04-25 19:59] LABS: Internal QC Validated? YES +Cl - CLEAR BKGD; Pregnancy, Urine Negative Negative
[2020-04-25 20:26] LABS: Bedside Glucose 231 mg/dL (70-110)
[2020-04-25] MEDS: Ceftriaxone 1 GM/50 ML BAG IV (20:34)
[2020-04-25 20:48] VITALS: BP 125/83; PULSE 104; RESP 27; O2SAT 100
--- NOTE | 2020-04-25 21:12 | HP.PCM_ITS ---
Problem List (1) Acute pyelonephritis Status: Acute (2) Presence of insulin pump Status: Chronic (3) Diabetes Status: Chronic Qualifiers: Diabetes mellitus type: type 1 Diabetes mellitus complication status: with hyperglycemia Qualified Code(s): E10.65 - Type 1 diabetes mellitus with hyperglycemia History of Present Illness Date of Admission: 04/25/20 Chief Complaint: Fever - 3 days The patient is a 24 year old F with past medical history of type I DM, on insulin pump, follows with Dr. Mendoza in the outpatient, who comes in with complaints of fever ongoing for about 3 days. And admits to having dysuria, frequency, lower abdominal pressure ongoing for about 1 week. She was started on Bactrim by her primary care doctor 6 days ago. She however has been having fever as high as 103F, chills and generalized malaise. Her blood sugars on her insulin pump have been uncontrolled, reading to 50s. She denied any nausea vomiting or flank pain or abdominal pain. Vitals in the ED showed temperature of 97.8F, heart rate 130, blood pressure 138/75, respiratory 16, SPO2 was 100% on room air. WBC count was 6.7, hemoglobin 10.5, platelet count 232, sodium 134, potassium 3.9, chloride 104, bicarbonate 20, anion gap closed on. BUN 12, creatinine 0.82, lactic acid 1.2. UA was clear, protein 30, glucose 1000, ketones 150, nitrite 10, nitrite negative, leukocyte esterase 25, WBC 0-5, small ketones in her urine. Blood glucose was 231 Urine cultures are pending. CT of the abdomen and pelvis shows right perinephric stranding Past Medical History Past Medical History (Chronic Problems): Chronic Problems (Last Reviewed 01/22/20 @ 09:[address] Ilia Mendoza MD) Presence of insulin pump (Chronic) Diabetes (Chronic) Medical History: Medical History (Last Reviewed 01/22/20 @ 09:[address] Ilia Mendoza MD) Diabetes type 1, controlled E10.9 Hearing problem H91.90 Vision problem H54.7 Vitamin deficiency E56.9 Allergies insulin glargine, human recombin. a [From Lantus] Allergy (Verified 04/25/20 18:12) Itching Home Medications: Ambulatory Orders Medication Instructions Recorded [place], Insulin Disposable 1 each MISCELL. 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 Ilia Mendoza MD) Mother Asthma History Items: No pertinent history Paternal Family History: Family History (Last Reviewed 01/22/20 @ 09:[address] Ilia Mendoza MD) Mother Asthma History Items: Heart Disease - [place] Review of Systems Constitutional: Reports: Chills, Malaise, Weakness, Fatigue. Denies: Anorexia, Fever, Night Sweats, Weight Change Eyes: Denies: Blurred vision, Cataracts, Conjunctivae Inflammation, Pain, Redness, Vision Change HEENT: Denies: Difficulty Hearing, Difficulty Swallowing, Head Aches, Hearing Changes, Sinus Congestion, Sinus Drainage Cardiovascular: Denies: Chest Pain, Claudication, Orthopnea, Palpitations, Paroxysmal Noc. Dyspnea Respiratory: Denies: Cough, Hemoptysis, Shortness of breath at rest, Shortness of breath upon exertion, Sputum production Gastrointestinal: Denies: Abdominal Pain, Constipation, Hematemesis, Hematochezia, Nausea, Vomiting Genitourinary: Reports: Dysuria, Frequency, Hesitancy, Nocturia, Urgency. Denies: Incontinence Musculoskeletal: Denies: Joint Pain, Joint stiffness, Joint swelling, Joint Tenderness Skin: Denies: Rash, Wounds Neurological: Denies: Numbness, Tingling, Focal weakness Psychiatric: Denies: Anxiety, Depression, Homicidal Ideations, Suicidal Ideations Hematologic/ Lymphatic: Denies: Easy Bruising, Easy Bleeding VTE Information - Inpt Only VTE Present on Admission: No VTE Pharm Prophylaxis ordered?: Yes Patient Problems: Active and Suspected Problems (Last Reviewed 01/22/20 @ 09:[address] Ilia Mendoza MD) Acute pyelonephritis (Acute) - Physical Exam Vitals/I&O's: Vital Signs Temp Pulse Resp BP Pulse Ox 97.8 F 104 H 27 H 125/83 H 100 04/25/20 18:12 04/25/20 20:48 04/25/20 20:48 04/25/20 20:48 04/25/20 20:48 Oxygen Delivery Method Room Air Weight: 56.699 kg Body Mass Index (BMI) 22.8 Finger Stick Blood Glucose 415 Intake and Output for Last 24 Hours 04/23/20 04/24/20 04/25/20 23:59 23:59 23:59 Intake Total 1000 / 999 Balance 1000 / 999 General: Alert, Oriented x3, Cooperative, No apparent distress HEENT: Atraumatic, PERRLA, EOMI, Normocephalic Oral: Moist Mucosa Neck: Supple Lungs: Clear to auscultation, Normal air movement Cardiovascular: Regular rate, Regular Rhythm, Normal S1, Normal S2, No murmurs Abdomen: Bowel Sounds Present, Soft, Non Tender, Non-Distended, No Hepato- splenomegaly, - - No bilateral flank tenderness Extremities: No edema Skin: No rashes, No breakdown Musculoskeletal: No Tenderness to Palpation of Joints or Extremities Lymphatic: No Cervical, Supraclavicular, or Inguinal Adenopathy Neurological: Cranial nerves II-XII grossly intact, Neuro grossly intact Psych/Mental Status: Normal Affect, Appropriate Laboratory Results 04/25/20 17:50: WBC 6.7, RBC 3.39 L, Hgb 10.5 L, Hct 31.3 L, MCV 92.3, MCH 31.0, MCHC 33.5, RDW Std Deviation 44.1 H, RDW Coeff of [place] 13.3, Plt Count 232, MPV 9.9, Immature Gran % (Auto) 0.800, Neut % (Auto) 75.6 H, Lymph % (Auto) 13.2 L, [place] % (Auto) 10.1 H, Eos % (Auto) 0.0, Baso % (Auto) 0.3, Absolute Neuts (auto) 5.0, Absolute Lymphs (auto) 0.88, Nucleated RBC % 0 04/25/20 17:50: Sodium 134 L, Potassium 3.9, Chloride 104, Carbon Dioxide 20.0 L , Anion Gap 10, BUN 12, Creatinine 0.82, Estim Creat Clear Calc 85.11, Est GFR (MDRD) Af Amer 112, Est GFR (MDRD) Non-Af 93, BUN/Creatinine Ratio 14.7, Glucose 261 H, Calcium 8.3 L, Total Bilirubin 0.30, AST 8 L, ALT 12 L, Alkaline Phosphatase 70, Total Protein 6.5, Albumin 2.7 L, Globulin 3.8, Albumin/Globulin Ratio 0.7 L 04/25/20 17:50: Lactic Acid 1.2 04/25/20 17:50: Urine Color Yellow, Urine Clarity Clear, Urine pH 6.0, Ur Specific [place] 1.010, Urine Protein 30 H, Urine Glucose (UA) 1000 H, Urine Ketones 150 H, Urine Occult Blood 10 H, Urine Nitrite Negative, Urine Bilirubin Negative, Urine Urobilinogen Normal, Ur Leukocyte Esterase 25 H, Urine RBC 0 SEEN, Urine WBC 0-5 SEEN, Ur Squamous Epith Cells 5-10 SEEN, Urine Bacteria RARE, Urine Mucus 0 SEEN, Urine Test Negative 04/25/20 17:50: Acetone Level SMALL H 04/25/20 20:20: POC Glucose 231 H Assessment/Plan All Active Problems (Last Reviewed 01/22/20 @ 09:[address] Ilia Mendoza MD) Acute pyelonephritis (Acute) DKA (diabetic ketoacidoses) (Acute) Right shoulder pain (Acute) Hyperglycemia due to type 1 diabetes mellitus (Acute) Controlled type 1 diabetes mellitus with microalbuminuria, with long-term current use of insulin (Acute) 24-year-old type I diabetic who comes in with complaints of dysuria, frequency, uncontrolled blood sugars and has abnormal CT 1. Acute pyelonephritis, failed outpatient Bactrim Patient has had acute UTI symptoms ongoing for 1 week; presented with persistent fever No fevers seen in the ED, WBC count is 6.7 CT of the abdomen and pelvis suggestive of right acute pyelonephritis; no flank tenderness elicited Blood and urine cultures are pending Started on IV ceftriaxone; will continue same, follow-up on cultures 2. Type I DM, on insulin pump, blood sugars are uncontrolled secondary to acute infection; not in acute DKA Recent HbA1c in January 2020 was 9.8 We will hydrate patient, continue on home insulin regimen with determined 30 units daily as well as her insulin pump Repeat BMP in a.m. 3. Hyponatremia likely pseudohyponatremia We will continue IV fluids, repeat blood work in a.m. 4. Anemia, unclear etiology, hemoglobin is 10.5, dropped in hemoglobin from 13.2 in January 2020 We will check iron stores 5. DVT prophylaxis?low risk; early ambulation with recommended Inpatient E&M: 51455 Init Hosp L3
[2020-04-25 21:23] VITALS: BP 130/76; PULSE 102; RESP 26; TEMP 36.8; O2SAT 100
[2020-04-25] MEDS: 0.9% Normal Saline 1,000 ML 999 ML IV (21:33)
[2020-04-25 22:41] VITALS: BMI 22.9; BMI 23.9
[2020-04-25] MEDS: Acetaminophen 325 MG Tablet 650 MG PO (22:53)
[2020-04-25] MEDS: 0.9% Normal Saline 1,000 ML 125 ML IV (22:54)
[2020-04-25 23:02] LABS: Iron 23 ug/dL (50-170); Iron Binding Capacity,Total 180 ug/dL (250-450); PERCENT IRON SATURATION 12.8 % (15.0-55.0)
[2020-04-25 23:03] VITALS: BP 131/78; PULSE 115; RESP 16; TEMP 39.3; O2SAT 98
[2020-04-25 23:48] VITALS: PULSE 113
[2020-04-26] VITALS (8 sets, daily range): BP systolic 112–118; BP diastolic 69–72; PULSE 71–120; RESP 16–18; TEMP 36.8–38.2; O2SAT 95–98
[2020-04-26] MEDS: 0.9% Normal Saline 1,000 ML 125 ML IV ×3 (04:50→19:12)
[2020-04-26] MEDS: oxyCODONE 5 MG Tablet PO (04:51)
[2020-04-26 06:45] LABS: Absolute Lymphocyte Count 0.99 X10^3/uL (0.83-4.51); Absolute Neutrophil Count 6.3 X10^3/uL (2.0-7.7); Basophil# 0.03 X10^3/uL; Basophil% 0.4 % (0-1); Eosinophil# 0.01 X10^3/uL; Eosinophils% 0.1 % (0-5); Hematocrit 34.3 % (37-47); Hemoglobin 10.9 g/dL (12.0-15.0); Lymphocyte # 0.99 X10^3/ul (4.0); Lymphocyte % 11.9 % (19-41); Mean Corp Hgb Conc 31.8 g/dL (32-36); Mean Corpuscular Hgb 29.7 pg (27.0-32.0); Mean Corpuscular Volume 93.5 fL (81-99); Mean Platelet Vol. 9.8 fl (6.2-12.0); Monocyte# 0.92 X10^3/uL; Monocyte% 11.1 % (0-10); NRBC Flagged by Analyzer 0 % (0-5); Neutrophil # 6.32 X10^3/uL (2.7-7.7); Neutrophil % 75.9 % (47-70); Platelet Count 251 K/mm3 (150-450); RBC Distribution Width CV 13.2 % (11.6-14.6); RBC Distribution Width SD 45.3 fl (35.1-43.9); Red Blood Count 3.67 M/mm3 (4.2-5.4); White Blood Count 8.3 K/mm3 (4.4-11.0)
[2020-04-26 07:10] LABS: ALB/GLOB Ratio 0.7 RATIO (0.9-2.4); AST(SGOT) 9 U/L (15-37); Alanine Aminotransfer ALT/SGPT 10 U/L (13-56); Albumin, Serum 2.6 g/dL (3.2-5.0); Alkaline Phosphatase 67 U/L (45-117); Anion Gap 9 (5-15); BUN 9 mg/dL (7-18); Calcium,Total 7.9 mg/dL (8.5-10.1); Chloride 112 mmol/L (98-107); Creatinine, Serum 0.64 mg/dL (0.55-1.02); EST Glomerular Filtration Rate 122 mL/min (>60); Est Glom Filt Rate - Afr Amer 147 mL/min (>60); Estimated Creatinine Clearance 109.05 ml/min; Globulin 3.6 g/dL (2.2-4.2); Glucose 105 mg/dL (74-106); Potassium 3.7 mmol/L (3.5-5.1); Protein, Total 6.2 g/dL (6.4-8.2); Sodium Level 141 mmol/L (136-145)
--- NOTE | 2020-04-26 08:29 | PN_ITS ---
Patient Problems: Active and Suspected Problems (Last Reviewed 01/22/20 @ 09:[address] Ilia Mendoza MD) Acute pyelonephritis (Acute) Subjective: Chief complaint: Follow-up after admission for acute right pyelonephritis. Patient seen and examined. No acute events overnight. She denied flank pain, dysuria or hematuria. She mentioned that her urine is clear today. She is still having spikes of fever. She is tachycardic, blood pressure stable, pulse ox is 98% on room air. - Physical Exam Vitals/I&O's: Vital Signs Temp Pulse Resp BP Pulse Ox 100.7 F H 120 H 16 112/72 98 04/26/20 04:56 04/26/20 07:35 04/26/20 04:56 04/26/20 04:56 04/26/20 04:56 Oxygen Delivery Method Room Air Weight: 130 lb 15.273 oz Body Mass Index (BMI) 23.9 Finger Stick Blood Glucose 415 Intake and Output for Last 24 Hours 04/24/20 04/25/20 04/26/20 23:59 23:59 23:59 Intake Total 3050 / 3050 741.67 / 741.67 Balance 3050 / 3050 741.67 / 741.67 General: Alert, Oriented x3, Cooperative, No apparent distress HEENT: Atraumatic, PERRLA, EOMI, Normocephalic Oral: Moist Mucosa, No Gingival or Mucosal Lesions/ Ulcerations Neck: Supple, No JVD, Negative Carotid Bruits, Trachea Midline, Thyroid Normal Size and Texture Lungs: Clear to auscultation, Normal air movement, No rhonchi, No wheeze, No rales Cardiovascular: Regular rate, Regular Rhythm, Normal S1, Normal S2, PMI Normal, Tachycardic Abdomen: Bowel Sounds Present, Soft, Non Tender, Non-Distended, No Hepato- splenomegaly Extremities: No clubbing, No cyanosis, No edema Skin: No rashes, No breakdown Lymphatic: No Cervical, Supraclavicular, or Inguinal Adenopathy Neurological: Cranial nerves II-XII grossly intact, Motor Exam 5/5 strength throughout Psych/Mental Status: Normal Affect, Appropriate, Alert and oriented to time, place, person, mood and affect Laboratory Results 04/25/20 17:50: WBC 6.7, RBC 3.39 L, Hgb 10.5 L, Hct 31.3 L, MCV 92.3, MCH 31.0, MCHC 33.5, RDW Std Deviation 44.1 H, RDW Coeff of [place] 13.3, Plt Count 232, MPV 9.9, Immature Gran % (Auto) 0.800, Neut % (Auto) 75.6 H, Lymph % (Auto) 13.2 L, [place] % (Auto) 10.1 H, Eos % (Auto) 0.0, Baso % (Auto) 0.3, Absolute Neuts (auto) 5.0, Absolute Lymphs (auto) 0.88, Nucleated RBC % 0 04/25/20 17:50: Sodium 134 L, Potassium 3.9, Chloride 104, Carbon Dioxide 20.0 L , Anion Gap 10, BUN 12, Creatinine 0.82, Estim Creat Clear Calc 85.11, Est GFR (MDRD) Af Amer 112, Est GFR (MDRD) Non-Af 93, BUN/Creatinine Ratio 14.7, Glucose 261 H, Calcium 8.3 L, Total Bilirubin 0.30, AST 8 L, ALT 12 L, Alkaline Phosphatase 70, Total Protein 6.5, Albumin 2.7 L, Globulin 3.8, Albumin/Globulin Ratio 0.7 L 04/25/20 17:50: Lactic Acid 1.2 04/25/20 17:50: Urine Color Yellow, Urine Clarity Clear, Urine pH 6.0, Ur Specific [place] 1.010, Urine Protein 30 H, Urine Glucose (UA) 1000 H, Urine Ketones 150 H, Urine Occult Blood 10 H, Urine Nitrite Negative, Urine Bilirubin Negative, Urine Urobilinogen Normal, Ur Leukocyte Esterase 25 H, Urine RBC 0 SEEN, Urine WBC 0-5 SEEN, Ur Squamous Epith Cells 5-10 SEEN, Urine Bacteria RARE, Urine Mucus 0 SEEN, Urine Test Negative 04/25/20 17:50: Acetone Level SMALL H 04/25/20 17:50: Iron 23 L, TIBC 180 L, Iron Saturation 12.8 L 04/25/20 20:20: POC Glucose 231 H 04/26/20 05:25: WBC 8.3, RBC 3.67 L, Hgb 10.9 L, Hct 34.3 L, MCV 93.5, MCH 29.7, MCHC 31.8 L D, RDW Std Deviation 45.3 H, RDW Coeff of [place] 13.2, Plt Count 251, MPV 9.8, Immature Gran % (Auto) 0.600, Neut % (Auto) 75.9 H, Lymph % (Auto) 11.9 L, [place] % (Auto) 11.1 H, Eos % (Auto) 0.1, Baso % (Auto) 0.4, Absolute Neuts (auto) 6.3, Absolute Lymphs (auto) 0.99, Nucleated RBC % 0 04/26/20 05:25: Sodium 141, Potassium 3.7, Chloride 112 H, Carbon Dioxide 20.0 L , Anion Gap 9, BUN 9, Creatinine 0.64, Estim Creat Clear Calc 109.05, Est GFR (MDRD) Af Amer 147, Est GFR (MDRD) Non-Af 122, BUN/Creatinine Ratio 14.0, Glucose 105, Calcium 7.9 L, Total Bilirubin 0.30, AST 9 L, ALT 10 L, Alkaline Phosphatase 67, Total Protein 6.2 L, Albumin 2.6 L, Globulin 3.6, Albumin/Globulin Ratio 0.7 L Clinical Impression(s) from Imaging Studies Abdomen/Pelvis CT 04/25/20 19:57 IMPRESSION: Abnormal appearance of the right kidney most consistent with pyelonephritis. However the findings are nonspecific and recommend correlation with urinalysis. Electronically Signed: Edvin Webster MD at 20:43 EST , Service support , Current Medications Acetaminophen (Acetaminophen 325 Mg Tablet) 650 mg PO Q6H PRN PRN PRN Reason: Pain Score 1-10/Temp > 100.7 F Last Admin: 04/25/20 22:53 Dose: 650 mg Documented by: Sodium Chloride () 1,000 mls @ 125 mls/hr IV .Q8H DENY Last Admin: 04/26/20 04:50 Dose: 125 mls/hr Documented by: Sodium Chloride () 250 mls @ 15 mls/hr IV .[id number] PRN PRN Reason: Saline Flush Sodium Chloride () 250 mls @ 15 mls/hr IV .[id number] PRN PRN Reason: Additional IVPB Infusion Ceftriaxone Sodium 2 gm/ (Sodium Chloride) 50 mls @ 100 mls/hr IV Q24 DENY Non-Formulary Medication (Insulin Detemir [Levemir]) 30 unit SC DAILY DENY Oxycodone HCl (Oxycodone 5 Mg Tablet) 5 mg PO Q4H PRN PRN PRN Reason: Pain Score 4-5 Last Admin: 04/26/20 04:51 Dose: 5 mg Documented by: Sodium Chloride (0.9% Saline Lock 10 Ml Syringe) 10 - 40 ml IV UD PRN PRN Reason: SALINE FLUSH Medical Necessity - Tobacco Use Smoking Status: Never smoker Tobacco Use: Non-smoker Assessment/Plan All Active Problems (Last Reviewed 01/22/20 @ 09:[address] Ilia Mendoza MD) Acute pyelonephritis (Acute) This is a 24 years old female patient presented to the emergency room because of fever with chills and malaise and she was found to have findings consistent with acute pyelonephritis, was treated for UTI as outpatient with Bactrim and she failed outpatient treatment. #1 acute right pyelonephritis: With failure of outpatient treatment. CT scan abdomen pelvis reviewed. Urinalysis is not typical for pyelonephritis, no pyuria but it might be altered by Bactrim that patient received 3 days ago. Currently, she is on IV Rocephin. She has been having spikes of fever, tachycardic, blood pressure stable. Blood and urine cultures are pending. test was negative. Plan: Change IV Rocephin to 2 mg every 24 hours, continue IV antibiotics, continue IV fluids. #2 anemia: It is probably chronic secondary to menses, iron deficiency anemia. Serum iron and iron saturation are low. We will start iron supplement. No active bleeding. #3 type 1 diabetes mellitus: She is on insulin pump. Blood sugar has been fluctuating. Plan to monitor. #4 DVT prophylaxis: Low risk patient, no prophylaxis indicated. This note was generated with [employer] dictation software. It may contain incorrect words, spelling, and punctuation that were not noted in checking the note before signing. Inpatient E&M: 91032 Subs Hosp L2
--- NOTE | 2020-04-26 11:15 | CASEMGMT ---
NGHIA MATTHEWS assessment: Face to Face with patient for initial transition planning/care coordination assessment. NGHIA MATTHEWS introduced self and role at [facility], pt voices understanding and consents to assessment at this time. Pt is standing in room in no distress at this time. Pt is A/Ox4 at this time and answers all questions appropriately at this time. Pt's is at bedside during assessment. Care providers, pharmacy, and demographics verified/updated at this time. Presentation: Dx w/ UTI Saturday. on bactrim. 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 LNOK: Alexys Meza, ; Bertha Velazquez, mother Living Arrangements: Pt states lives with in apt and states no concerns at home at this time. Pt states is independent with ADL's. Transportation: Pt states family drives and states no transportation concerns at this time. DME/HHC: Pt states has glucometer and insulin pump and states no further DME need at this time. Pt states no hx of HHC or SNF in the past. Pt states no concerns with going home at this time. 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 Pt states does not smoke cigarettes but does occasionally drink ETOH. Pt states no further concerns/needs at this time. CM to follow for any further discharge planning/needs. Advised pt to ask for DM if any further questions/concerns/needs arise, voices understanding. Pt Goal: Home Plan[place] NGHIA MATTHEWS
--- NOTE | 2020-04-26 14:00 | NURSING ---
pt's own glucose monitor read 244 and will get 0.8 units. was given a correction dose at 3.2 at 1122 pt reported.
[2020-04-26] MEDS: Acetaminophen 325 MG Tablet 650 MG PO (16:46)
--- NOTE | 2020-04-26 19:50 | NURSING ---
pharmacy called about pt's levemir order. pt states she takes no long acting insulin and manages her own insulin pump, humalog.
[2020-04-26] MEDS: Insulin Basal Pump SC (20:46)
[2020-04-27] VITALS (15 sets, daily range): BP systolic 97–131; BP diastolic 60–80; PULSE 86–138; RESP 16–24; TEMP 36.2–37.9; O2SAT 88–99
--- NOTE | 2020-04-27 01:29 | RAD_ITS ---
STUDY: X-RAY CHEST REASON FOR EXAM: Female, 24 years old. Shortness of breath. TECHNIQUE: AP portable chest. COMPARISON: February 08, 2020. FINDINGS: There are now bibasilar airspace opacities left much greater than right. No effusions. No pneumothorax. Normal size heart. Normal mediastinum and marco a. Normal visualized pulmonary arteries. Normal visualized aortic arch and descending thoracic aorta. Normal visualized thoracic spine. Normal visualized ribs, clavicles, and shoulders. There is no demonstrated abnormality of the visualized soft tissue structures of the upper abdomen. RAD/Chest 1 View (Portable) IMPRESSION: Bibasilar pneumonia left greater than right. Electronically Signed: Kenneth Willis MD at 2:45 EST , Service support ,
--- NOTE | 2020-04-27 01:30 | NURSING ---
pt called RN in to room, woke up feeling SOB. pt flushed and tachypneic. O2 sats 87% on RA. placed on 2L NC and was 93%. Dr. Mckeon on unit and notified. Order to stop IV fluids, order stat chest xray and breathing tx. RN & MD assessed lungs- crackles to bases, worse to left side. 20 mg IV lasix ordered. Resp therapy at bedside for treatment, taught on using IS, pt coughing and deep breathing appropriately. Bedside glucose 211. See vital trends. Pt feeling improvement after breathing tx. RN placed hat in toilet to measure output. pt then got up to void. will continue to monitor pt status closely.
[2020-04-27] MEDS: Furosemide 20 MG/2 ML VIAL IV (01:40)
[2020-04-27] MEDS: Ipratropium/Albuterol Sulfate 3 ML AMPUL.NEB INHALATION (01:43)
[2020-04-27 02:01] LABS: Bedside Glucose 211 mg/dL (70-110)
[2020-04-27] MEDS: Acetaminophen 325 MG Tablet 650 MG PO (03:07)
--- NOTE | 2020-04-27 04:14 | PCM.PN.BLA ---
Progress Note Event note: I was called for patient who was saturating in the 80s and tachypneic. She is running a fever - 100.3F Oxygen saturation improved on 2 L of oxygen. Examination of the lungs reveal bilateral basilar crackles Patient has been on IV fluids since admission; IV fluids discontinued Chest x-ray ordered, breathing treatments scheduled. Chest x-ray was suggestive of bibasilar pneumonia, worse on the left Patient already on ceftriaxone, azithromycin added for pneumonia Educated on incentive spirometer STROKE Vital Signs/Narrative: Vital Signs Temp Pulse Resp BP Pulse Ox 04/27/20 03:00 99.8 F H 127 H 24 H 123/66 H 99 04/27/20 01:55 100.3 F H 138 H 22 H 131/71 H 98 04/27/20 01:45 117 H 20 H 95 04/27/20 01:23 93 04/27/20 01:22 100.3 F H 120 H 24 H 121/70 H 88
--- NOTE | 2020-04-27 08:52 | PCM.PROGNOTE ---
Patient Problems: Active and Suspected Problems (Last Reviewed 01/22/20 @ 09:[address] Ilia Mendoza MD) Acute pyelonephritis (Acute) Subjective: Chief complaint: Follow-up after admission for acute right pyelonephritis. Patient seen and examined. Overnight, patient became more short of breath and requiring oxygen. Chest x-ray done and revealed mild pulmonary vascular congestion, questionable infiltrate which I doubt. Today, patient is feeling better, she is off oxygen. At this time, I doubt pneumonia and I think her symptoms due to fluid overload. Currently, she is off IV fluids. She still having spikes of low-grade fever, tachycardia, blood pressure stable. Pulse ox is 94% on room air. - Physical Exam Vitals/I&O's: Vital Signs Temp Pulse Resp BP Pulse Ox 98.4 F 89 18 97/60 94 04/27/20 05:45 04/27/20 07:41 04/27/20 05:45 04/27/20 05:45 04/27/20 05:45 Oxygen Flow Rate (L/min) 2 Oxygen Delivery Method Room Air Weight: 133 lb 6.075 oz Body Mass Index (BMI) 23.9 Finger Stick Blood Glucose 415 Intake and Output for Last 24 Hours 04/25/20 04/26/20 04/27/20 23:59 23:59 23:59 Intake Total 3050 / 3050 2666.67 / 3166.67 1021.67 / 1021.67 Output Total 2600 / 2600 Balance 3050 / 3050 2666.67 / 3166.67 -1578.33 / -1578.33 General: Alert, Oriented x3, Cooperative, No apparent distress HEENT: Atraumatic, PERRLA, EOMI, Normocephalic Oral: Moist Mucosa, No Gingival or Mucosal Lesions/ Ulcerations Neck: Supple, No JVD, Negative Carotid Bruits, Trachea Midline, Thyroid Normal Size and Texture Lungs: Clear to auscultation, Normal air movement, No rhonchi, No wheeze, No rales Cardiovascular: Regular rate, Regular Rhythm, Normal S1, Normal S2, PMI Normal, Tachycardic Abdomen: Bowel Sounds Present, Soft, Non Tender, Non-Distended, No Hepato-splenomegaly Extremities: No clubbing, No cyanosis, No edema Skin: No rashes, No breakdown Lymphatic: No Cervical, Supraclavicular, or Inguinal Adenopathy Neurological: Cranial nerves II-XII grossly intact, Motor Exam 5/5 strength throughout Psych/Mental Status: Normal Affect, Appropriate, Alert and oriented to time, place, person, mood and affect Microbiology Past 72 Hours 04/25/20 17:50 Urine, Clean Catch Urine Culture - Preliminary Presumptive E. coli Laboratory Results 04/27/20 01:50: POC Glucose 211 H Current Medications Acetaminophen (Acetaminophen 325 Mg Tablet) 650 mg PO Q6H PRN PRN PRN Reason: Pain Score 1-10/Temp > 100.7 F Last Admin: 04/27/20 03:07 Dose: 650 mg Documented by: Albuterol/Ipratropium (Ipratropium/Albuterol Sulfate 3 Ml Ampul.Neb) 3 ml INHALATION Q4HWA.RT [facility] Last Admin: 04/27/20 01:43 Dose: 3 ml Documented by: Sodium Chloride () 250 mls @ 15 mls/hr IV .[id number] PRN PRN Reason: Saline Flush Sodium Chloride () 250 mls @ 15 mls/hr IV .[id number] PRN PRN Reason: Additional IVPB Infusion Ceftriaxone Sodium 2 gm/ (Sodium Chloride) 50 mls @ 100 mls/hr IV Q24 [facility] Last Infusion: 04/26/20 10:15 Dose: Infused Documented by: Azithromycin 500 mg/ Dextrose 255 mls @ 250 mls/hr IV QHS [facility] Last Infusion: 04/27/20 07:10 Dose: Infused Documented by: Insulin Aspart (Insulin Basal Pump) 0 unit SC UD [facility] Last Admin: 04/26/20 20:46 Dose: 1 unit Documented by: Oxycodone HCl (Oxycodone 5 Mg Tablet) 5 mg PO Q4H PRN PRN PRN Reason: Pain Score 4-5 Last Admin: 04/26/20 04:51 Dose: 5 mg Documented by: Sodium Chloride (0.9% Saline Lock 10 Ml Syringe) 10 - 40 ml IV UD PRN PRN Reason: SALINE FLUSH Medical Necessity - Tobacco Use Smoking Status: Never smoker Tobacco Use: Non-smoker Assessment/Plan All Active Problems (Last Reviewed 01/22/20 @ 09:[address] Ilia Mendoza MD) Acute pyelonephritis (Acute) This is a 24 years old female patient presented to the emergency room because of fever with chills and malaise and she was found to have findings consistent with acute pyelonephritis, was treated for UTI as outpatient with Bactrim and she failed outpatient treatment. #1 acute right pyelonephritis: With failure of outpatient treatment. She is on IV Rocephin. IV Zithromax added last night because of questionable pneumonia. At this time, I doubt pneumonia. Patient's oxygen improved, now on room air. She still having spikes of low-grade fever. CT scan abdomen pelvis reviewed. Urinalysis is not typical for pyelonephritis, no pyuria but it might be altered by Bactrim that patient received 3 days ago. Plan to continue same treatment, repeat CBC and BMP tomorrow morning, possible DC home tomorrow. #2 anemia: It is probably chronic secondary to menses, iron deficiency anemia. Serum iron and iron saturation are low. Continue iron supplement. #3 type 1 diabetes mellitus: She is on insulin pump. Blood sugar has been in the 200 range, fair control. Plan to monitor. #4 DVT prophylaxis: Low risk patient, no prophylaxis indicated. This note was generated with [employer] dictation software. It may contain incorrect words, spelling, and punctuation that were not noted in checking the note before signing. Inpatient E&M: 00043 Subs Hosp L2
[2020-04-27] MEDS: Ibuprofen 400 MG Tablet PO (14:39)
[2020-04-27] MEDS: Insulin Basal Pump SC (20:19)
[2020-04-28 03:00] VITALS: PULSE 95
[2020-04-28 03:40] VITALS: BP 122/76; PULSE 102; RESP 16; TEMP 36.9; O2SAT 94
[2020-04-28 05:46] LABS: Absolute Lymphocyte Count 1.71 X10^3/uL (0.83-4.51); Absolute Neutrophil Count 4.5 X10^3/uL (2.0-7.7); Basophil# 0.04 X10^3/uL; Basophil% 0.6 % (0-1); Eosinophil# 0.09 X10^3/uL; Eosinophils% 1.3 % (0-5); Hematocrit 29.6 % (37-47); Hemoglobin 9.8 g/dL (12.0-15.0); Lymphocyte # 1.71 X10^3/ul (4.0); Lymphocyte % 24.1 % (19-41); Mean Corp Hgb Conc 33.1 g/dL (32-36); Mean Corpuscular Hgb 29.9 pg (27.0-32.0); Mean Corpuscular Volume 90.2 fL (81-99); Mean Platelet Vol. 9.2 fl (6.2-12.0); Monocyte# 0.74 X10^3/uL; Monocyte% 10.4 % (0-10); NRBC Flagged by Analyzer 0 % (0-5); Neutrophil # 4.45 X10^3/uL (2.7-7.7); Neutrophil % 62.6 % (47-70); Platelet Count 322 K/mm3 (150-450); RBC Distribution Width CV 13.6 % (11.6-14.6); RBC Distribution Width SD 45.4 fl (35.1-43.9); Red Blood Count 3.28 M/mm3 (4.2-5.4); White Blood Count 7.1 K/mm3 (4.4-11.0)
[2020-04-28 06:08] LABS: Anion Gap 8 (5-15); BUN 8 mg/dL (7-18); Calcium,Total 7.8 mg/dL (8.5-10.1); Chloride 112 mmol/L (98-107); Creatinine, Serum 0.66 mg/dL (0.55-1.02); EST Glomerular Filtration Rate 117 mL/min (>60); Est Glom Filt Rate - Afr Amer 142 mL/min (>60); Estimated Creatinine Clearance 105.75 ml/min; Glucose 133 mg/dL (74-106); Potassium 3.4 mmol/L (3.5-5.1); Sodium Level 143 mmol/L (136-145)
[2020-04-28 06:48] VITALS: O2SAT 98
[2020-04-28 07:00] VITALS: PULSE 99
[2020-04-28] MEDS: Ibuprofen 400 MG Tablet PO (08:14)
[2020-04-28 08:23] VITALS: BP 115/70; PULSE 92; RESP 18; TEMP 36.9; O2SAT 96
--- NOTE | 2020-04-28 08:29 | DCINST_ITS ---
- Discharge Diagnoses Current Active Problems: Current Active and Chronic Problems (Last Reviewed 01/22/20 @ 09:[address] Ilia Mendoza MD) Acute pyelonephritis (Acute) Presence of insulin pump (Chronic) You will use the following diet at home:: Calorie/Carbohydrate Controlled (specify 1200, 1400, etc) - 1800 soham. Your food should be the consistency of: Regular Discharge Activity: Return to Normal Activity Weight Bearing Status: Full weight bearing Call your doctor if you observe: Fever of 101 or Higher, Shortness of breath, Dizziness, Fainting spells, Chest pain, Increased palpitations (irregular heartbeat), Uncontrolled pain Allergies/Adverse Reactions: Allergies insulin glargine, human recombin. a [From Lantus] Allergy (Verified 04/25/20 18:12) Itching Medications to take at Discharge [place], Insulin Disposable [Novofine Autocover 30G Needle] 1 each MISCELL. UD #1 box 09/17/18 blood sugar diagnostic See Rx Instructions .ROUTE .MEDSUPPLY #400 ea 01/22/20 insulin detemir U-100 100 unit/mL subcutaneous solution 30 unit SC DAILY ml 01/22/20 insulin lispro 100 unit/mL subcutaneous solution See Rx Instructions SC QDAY #60 ml 01/22/20 Insulin Lispro [Humalog] See Protocol SQ UD 04/26/20 Cephalexin [Keflex] 500 mg PO Q8 #15 cap 04/28/20 The following prescriptions were given: Cephalexin [Keflex] 500 mg PO Q8 #15 cap Transmission Status: Pending to [facility] #30 Primary Care Physician: Narendra Lazo MD [Primary Care Provider] - Please follow up with your Primary Care Physician in: 1-2 weeks Test Results: Test results from this visit will be discussed in further detail at your follow- up appointment, if applicable.
--- NOTE | 2020-04-28 11:33 | PHA.DC.MR ---
Pharmacy Service has performed discharge medication reconciliation for this patient. The patient's discharge medication list was reviewed for discrepancies and discrepancies were resolved. Home Medications [place], Insulin Disposable [Novofine Autocover 30G Needle] 1 each MISCELL. UD #1 box 09/17/18 blood sugar diagnostic See Rx Instructions .ROUTE .MEDSUPPLY #400 ea 01/22/20 insulin detemir U-100 100 unit/mL subcutaneous solution 30 unit SC DAILY ml 01/22/20 insulin lispro 100 unit/mL subcutaneous solution See Rx Instructions SC QDAY #60 ml 01/22/20 Insulin Lispro [Humalog] See Protocol SQ UD 04/26/20 Cephalexin [Keflex] 500 mg PO Q8 #15 cap 04/28/20
--- NOTE | 2020-04-28 11:55 | PCM.DC.SUM ---
Discharge Date and Diagnosis - Problem List Patient Problems: Active and Suspected Problems (Last Reviewed 01/22/20 @ 09:[address] Ilia Mendoza MD) Acute pyelonephritis (Acute) Date of Admission: 04/25/20 Date of Discharge: 04/28/20 - Primary Discharge Diagnosis Acute Problems: Active Problems (Last Reviewed 01/22/20 @ 09:[address] Ilia Mendoza MD) #1 E. coli acute right pyelonephritis. #2 chronic anemia, iron deficiency. - Secondary Discharge Diagnosis Chronic Problems: Chronic Problems (Last Reviewed 01/22/20 @ 09:[address] Ilia Mendoza MD) Presence of insulin pump (Chronic) Controlled type 1 diabetes mellitus with microalbuminuria, with long-term current use of insulin (Chronic) Hospital Course and Treatment Imaging Results: Clinical Impression(s) from Imaging Studies Abdomen/Pelvis CT 04/25/20 19:57 IMPRESSION: Abnormal appearance of the right kidney most consistent with pyelonephritis. However the findings are nonspecific and recommend correlation with urinalysis. Electronically Signed: Edvin Webster MD at 20:43 EST , Service support , Chest X-Ray 04/27/20 01:29 IMPRESSION: Bibasilar pneumonia left greater than right. Electronically Signed: Kenneth Willis MD at 2:45 EST , Service support , Operations: None Procedures: None Summary of Care Provided: Patient seen and examined. Chart reviewed. Able to be discharged home. He remained afebrile for last 24 hours, no significant complaints. Cough is improved. Has been on room air, afebrile, blood and heart rate are stable. The patient is a 24 year old F presented to the emergency room because of fever with chills and malaise and she was found to have acute right pyonephritis with failure of outpatient treatment. Patient was treated for UTI as outpatient with Bactrim but she continued to have fever and chills as well as dysuria. CT scan abdomen and pelvis done on admission revealed abnormal appearance of the right kidney most consistent with acute pyonephritis. Urinalysis was not typical for pyelonephritis and this is probably because it is altered by the Bactrim that patient received few days before admission. Serum was negative. Patient was treated with IV fluids, IV Rocephin. Urine culture revealed presumptive E. coli. Blood culture showed no growth in 48 hours. She had an episode of shortness of breath which is attributed to volume overload. Chest x-ray done and revealed pulmonary vascular congestion and it was read by radiology as possible pneumonia which I doubt. Patient received 1 dose of IV Lasix and her symptoms improved and she was able to come off oxygen. Pneumonia ruled out. With IV antibiotic therapy, patient remained afebrile for 24 hours and her symptoms improved. She was found to have chronic anemia, iron deficiency likely due to her menses. There was no active bleeding. Patient discharged home in a stable medical condition, discharged on Keflex 500 mg p.o. 3 times daily for 5 more days of treatment to complete total of 8 days of treatment, I recommended follow-up with PCP in 1 to 2 weeks. Patient Problems: Active and Suspected Problems (Last Reviewed 01/22/20 @ 09:[address] Ilia Mendoza MD) Acute pyelonephritis (Acute) - Physical Exam Vitals/I&O's: Vital Signs Temp Pulse Resp BP Pulse Ox 98.4 F 92 18 115/70 96 04/28/20 08:23 04/28/20 08:23 04/28/20 08:23 04/28/20 08:23 04/28/20 08:23 Oxygen Flow Rate (L/min) 2 Oxygen Delivery Method Room Air Weight: 130 lb 1.164 oz Body Mass Index (BMI) 23.9 Finger Stick Blood Glucose 415 Intake and Output for Last 24 Hours 04/26/20 04/27/20 04/28/20 23:59 23:59 23:59 Intake Total 2666.67 / 3166.67 2186.67 / 2386.67 370 / 370 Output Total 2600 / 3500 900 / 900 Balance 2666.67 / 3166.67 -413.33 / -1113.33 -530 / -530 General: Alert, Oriented x3, Cooperative, No apparent distress HEENT: Atraumatic, PERRLA, EOMI, Normocephalic Oral: Moist Mucosa, No Gingival or Mucosal Lesions/ Ulcerations Neck: Supple, No JVD, Negative Carotid Bruits, Trachea Midline, Thyroid Normal Size and Texture Lungs: Clear to auscultation, Normal air movement, No rhonchi, No wheeze, No rales Cardiovascular: Regular rate, Regular Rhythm, Normal S1, Normal S2 Abdomen: Bowel Sounds Present, Soft, Non Tender, Non-Distended, No Hepato-splenomegaly Extremities: No clubbing, No cyanosis, No edema Skin: No rashes, No breakdown Lymphatic: No Cervical, Supraclavicular, or Inguinal Adenopathy Neurological: Cranial nerves II-XII grossly intact, Neuro grossly intact Psych/Mental Status: Normal Affect, Appropriate Microbiology Past 72 Hours 04/25/20 18:55 Blood Culture (Wb) - Anticubital Right Blood Culture - Preliminary No growth in 48 hours. 04/25/20 17:50 Blood Culture (Wb) - Anticubital Left Blood Culture - Preliminary No growth in 48 hours. 04/25/20 17:50 Urine, Clean Catch Urine Culture - Final Presumptive E. coli Laboratory Results 04/28/20 05:28: WBC 7.1, RBC 3.28 L, Hgb 9.8 L, Hct 29.6 L, MCV 90.2, MCH 29.9, MCHC 33.1, RDW Std Deviation 45.4 H, RDW Coeff of [place] 13.6, Plt Count 322, MPV 9.2, Immature Gran % (Auto) 1.000 H, Neut % (Auto) 62.6, Lymph % (Auto) 24.1, [place] % (Auto) 10.4 H, Eos % (Auto) 1.3, Baso % (Auto) 0.6, Absolute Neuts (auto) 4.5, Absolute Lymphs (auto) 1.71, Nucleated RBC % 0 04/28/20 05:28: Sodium 143, Potassium 3.4 L, Chloride 112 H, Carbon Dioxide 23.0, Anion Gap 8, BUN 8, Creatinine 0.66, Estim Creat Clear Calc 105.75, Est GFR (MDRD) Af Amer 142, Est GFR (MDRD) Non-Af 117, BUN/Creatinine Ratio 12.0, Glucose 133 H, Calcium 7.8 L Discharge Activity: Return to Normal Activity Weight Bearing Status: Full weight bearing Call your doctor if you observe: Fever of 101 or Higher, Shortness of breath, Dizziness, Fainting spells, Chest pain, Increased palpitations (irregular heartbeat), Uncontrolled pain Home Medications: Medications to take at Discharge [place], Insulin Disposable [Novofine Autocover 30G Needle] 1 each MISCELL. UD #1 box 09/17/18 blood sugar diagnostic See Rx Instructions .ROUTE .MEDSUPPLY #400 ea 01/22/20 insulin detemir U-100 100 unit/mL subcutaneous solution 30 unit SC DAILY ml 01/22/20 insulin lispro 100 unit/mL subcutaneous solution See Rx Instructions SC QDAY #60 ml 01/22/20 Insulin Lispro [Humalog] See Protocol SQ UD 04/26/20 Cephalexin [Keflex] 500 mg PO Q8 #15 cap 04/28/20 Following Prescriptions Were Given to Patient: Cephalexin [Keflex] 500 mg PO Q8 #15 cap Transmission Status: Received by [employer] #30 Primary Care Physician: Narendra Lazo MD [Primary Care Provider] - Please follow up with your Primary Care Physician in: 1-2 weeks Disposition: Home Minutes spent on discharge:: 28 Patient Condition:: Stable Medical Necessity - Tobacco Use Smoking Status: Never smoker Tobacco Use: Non-smoker Meaningful Use Info Meaningful Use Diagnoses (Choose all that apply): None applicable Inpatient E&M: 96827 Disch Hosp
== END 2020-04-28 10:19 | disposition home or self-care (01) | DRG 690 ==
LOC: ED 19:57 → PCU 04-26 07:08
PROVIDERS: Admitting Provider Internal Medicine; Emergency Provider Emergency Medicine; PCP Family Medicine; Visit Provider Hospitalist
DX: N10 Acute pyelonephritis (principal); E87.1 Hypo-osmolality and hyponatremia; B96.20 Unspecified Escherichia coli [E. coli] as the cause of diseases classified elsewhere; D50.9 Iron deficiency anemia, unspecified; E10.9 Type 1 diabetes mellitus without complications; Z79.4 Long term (current) use of insulin; Z96.41 Presence of insulin pump (external) (internal)
CPT/HCPCS: 36415; 71045; 74177; 80048; 80053; 81001; 81025; 82009; 82962; 83540; 83550; 83605; 85025; 87040; 87086; 87088; 87186; 94640; 97802; 99251; 99285; J7030; Q9967; A4216; G0463; J0696; J1940

== ENCOUNTER → 2020-05-13 12:19 | Outpatient (CLI) | payer BC, SELFPAY ==
[2020-04-25 22:41] VITALS: BMI 23.9
[2020-05-13 15:21] LABS: Hematocrit 39.7 % (37-47); Hemoglobin 12.5 g/dL (12.0-15.0); Mean Corp Hgb Conc 31.5 g/dL (32-36); Mean Corpuscular Hgb 29.3 pg (27.0-32.0); Mean Corpuscular Volume 93.2 fL (81-99); Mean Platelet Vol. 9.8 fl (6.2-12.0); Platelet Count 368 K/mm3 (150-450); RBC Distribution Width CV 13.3 % (11.6-14.6); RBC Distribution Width SD 45.3 fl (35.1-43.9); Red Blood Count 4.26 M/mm3 (4.2-5.4); White Blood Count 5.1 K/mm3 (4.4-11.0)
[2020-05-13 15:40] LABS: Anion Gap 5 (5-15); BUN 14 mg/dL (7-18); BUN/Creat Ratio 19.3 RATIO (10-20); Calcium,Total 9.1 mg/dL (8.5-10.1); Chloride 106 mmol/L (98-107); Creatinine, Serum 0.73 mg/dL (0.55-1.02); EST Glomerular Filtration Rate 106 mL/min (>60); Est Glom Filt Rate - Afr Amer 128 mL/min (>60); Glucose 149 mg/dL (74-106); Potassium 4.3 mmol/L (3.5-5.1); Sodium Level 138 mmol/L (136-145)
== END ==
PROVIDERS: PCP Family Medicine; Referring Provider Family Medicine; Visit Provider Family Medicine
DX: E83.51 Hypocalcemia (principal); D64.9 Anemia, unspecified
CPT/HCPCS: 36415; 80048; 85027

== ENCOUNTER → 2020-06-01 | Outpatient (CLI) | payer BC, SELFPAY ==
[2020-04-25 22:41] VITALS: BMI 23.9
== END | disposition home or self-care (01) ==
PROVIDERS: PCP Family Medicine; Referring Provider Family Medicine; Visit Provider Family Medicine
DX: Z20.822 Contact with and (suspected) exposure to COVID-19 (principal)
CPT/HCPCS: 87635; U0005; U0003

== ENCOUNTER → 2020-06-07 16:11 | Outpatient (CLI) | payer BC, SELFPAY ==
[2020-04-25 22:41] VITALS: BMI 23.9
--- NOTE | 2020-06-07 16:14 | RAD_ITS ---
STUDY: X-RAY CHEST REASON FOR EXAM: Female, 24 years old. cough, sob, fever off and on x 1 week TECHNIQUE: PA and lateral COMPARISON: 04/27/2020 FINDINGS: There is mild interstitial thickening with patchy area of increased density in left lower lobe possibly representing inflammatory disease.. There is no demonstrated pleural abnormality. Normal size heart. Normal mediastinum and marco a. Normal visualized pulmonary arteries. Normal visualized aortic arch and descending thoracic aorta. Normal visualized thoracic spine. Normal visualized ribs, clavicles, and shoulders. There is no demonstrated abnormality of the visualized soft tissue structures of the upper abdomen. There is improvement in aeration of the left lower lobe since previous exam. Previously noted right lower lobe consolidation has cleared RAD/Chest PA and Lateral IMPRESSION: Mild residual or possibly recurrent left lower lobe pneumonia. Clearing of previously noted right lower lobe infiltrate Electronically Signed: Marcos Dowling MD at 16:32 EST , Service support ,
== END ==
PROVIDERS: PCP Family Medicine; Referring Provider Family Medicine; Visit Provider Family Medicine
DX: R05 Cough (principal)
CPT/HCPCS: 71046

== ENCOUNTER 2021-06-05 09:12 | Outpatient (CLI) | payer BC, SELFPAY ==
[2021-06-05 12:37] LABS: Microalbumin,Random Urine 99.6 mg/L (NO RANGE EST.); Microalbumin:Creatinine Ratio 70.6 mg/g CRE (<30 mg/g CRE)
[2021-06-05 12:41] LABS: AST(SGOT) 12 U/L (15-37); Alanine Aminotransfer ALT/SGPT 16 U/L (13-56); Albumin, Serum 3.7 g/dL (3.2-5.0); Alkaline Phosphatase 60 U/L (45-117); Anion Gap 7 (5-15); BUN 19 mg/dL (7-18); BUN/Creat Ratio 21.9 RATIO (10-20); Calcium,Total 9.1 mg/dL (8.5-10.1); Chloride 104 mmol/L (98-107); Cholesterol 174 mg/dL (200); Creatinine, Serum 0.87 mg/dL (0.55-1.02); EST Glomerular Filtration Rate 85 mL/min (>60); Est Glom Filt Rate - Afr Amer 103 mL/min (>60); Globulin 3.6 g/dL (2.2-4.2); Glucose 229 mg/dL (74-106); High Density Lipoprotein 64 mg/dL; Protein, Total 7.3 g/dL (6.4-8.2); Sodium Level 137 mmol/L (136-145); Thyroid Stim Hormone (TSH) 2.31 uIU/mL (0.358-3.74); Triglycerides 75 mg/dL; Very Low Density Lipoprotein 15 mg/dL (5-40)
== END 2021-06-05 23:59 | disposition home or self-care (01) ==
LOC: BIMLAB 09:13
PROVIDERS: PCP Family Medicine; Referring Provider Internal Medicine Endocrinology, Diabetes & Metabolism; Visit Provider Internal Medicine Endocrinology, Diabetes & Metabolism
DX: E10.65 Type 1 diabetes mellitus with hyperglycemia (principal); Z96.41 Presence of insulin pump (external) (internal); Z46.81 Encounter for fitting and adjustment of insulin pump; E55.9 Vitamin D deficiency, unspecified
CPT/HCPCS: 36415; 80053; 80061; 82043; 82306; 82570; 84443

== ENCOUNTER → 2022-06-11 | Outpatient (CLI) | payer BC, SELFPAY ==
[2022-06-11 10:50] LABS: Vitamin D,25 Hydroxy 20.3 ng/mL
[2022-06-11 10:55] LABS: Microalbumin:Creatinine Ratio 80.7 mg/g CRE (<30 mg/g CRE)
[2022-06-11 11:05] LABS: AST(SGOT) 23 U/L (15-37); Alanine Aminotransfer ALT/SGPT 26 U/L (13-56); Albumin, Serum 3.6 g/dL (3.2-5.0); Alkaline Phosphatase 65 U/L (45-117); Anion Gap 5 (5-15); BUN 15 mg/dL (7-18); BUN/Creat Ratio 19.3 RATIO (10-20); Chloride 108 mmol/L (98-107); Cholesterol 189 mg/dL (200); Creatinine, Serum 0.78 mg/dL (0.55-1.02); EST Glomerular Filtration Rate 96 mL/min (>60); Est Glom Filt Rate - Afr Amer 116 mL/min (>60); Globulin 3.7 g/dL (2.2-4.2); Glucose 104 mg/dL (74-106); High Density Lipoprotein 63 mg/dL; Potassium 3.9 mmol/L (3.5-5.1); Protein, Total 7.3 g/dL (6.4-8.2); Sodium Level 141 mmol/L (136-145); Thyroid Stim Hormone (TSH) 2.28 uIU/mL (0.358-3.74); Triglycerides 70 mg/dL; Very Low Density Lipoprotein 14 mg/dL (5-40)
== END | disposition home or self-care (01) ==
LOC: LAB 09:01
PROVIDERS: Nurse Practitioner Family; PCP Family Medicine; Referring Provider Internal Medicine Endocrinology, Diabetes & Metabolism; Visit Provider Internal Medicine Endocrinology, Diabetes & Metabolism
DX: E11.9 Type 2 diabetes mellitus without complications (principal)
CPT/HCPCS: 36415; 80053; 80061; 82043; 82306; 82570; 84443

== ENCOUNTER → 2022-07-23 | Outpatient (CLI) | payer BC, SELFPAY ==
[2022-07-23 17:47] LABS: AST(SGOT) 16 U/L (15-37); Alanine Aminotransfer ALT/SGPT 20 U/L (13-56); Albumin, Serum 3.5 g/dL (3.2-5.0); Alkaline Phosphatase 56 U/L (45-117); Anion Gap 5 (5-15); BUN 19 mg/dL (7-18); BUN/Creat Ratio 23.4 RATIO (10-20); Calcium,Total 9.2 mg/dL (8.5-10.1); Chloride 107 mmol/L (98-107); Creatinine, Serum 0.81 mg/dL (0.55-1.02); EST Glomerular Filtration Rate 91 mL/min (>60); Est Glom Filt Rate - Afr Amer 110 mL/min (>60); Globulin 3.6 g/dL (2.2-4.2); Glucose 205 mg/dL (74-106); Potassium 4.4 mmol/L (3.5-5.1); Protein, Total 7.1 g/dL (6.4-8.2); Sodium Level 137 mmol/L (136-145)
== END | disposition home or self-care (01) ==
LOC: LAB 16:31
PROVIDERS: PCP Family Medicine; Visit Provider Nurse Practitioner Family
DX: E10.65 Type 1 diabetes mellitus with hyperglycemia (principal)
CPT/HCPCS: 36415; 80053

== ENCOUNTER → 2023-08-26 | Outpatient (CLI) | payer BC, SELFPAY ==
[2023-08-26 09:57] LABS: Vitamin D,25 Hydroxy 24.4 ng/mL
[2023-08-26 10:34] LABS: ALB/GLOB Ratio 0.9 RATIO (0.9-2.4); AST(SGOT) 23 U/L (15-37); Alanine Aminotransfer ALT/SGPT 28 U/L (13-56); Albumin, Serum 3.3 g/dL (3.2-5.0); Alkaline Phosphatase 74 U/L (45-117); Anion Gap 3 (5-15); BUN 15 mg/dL (7-18); BUN/Creat Ratio 18.8 RATIO (10-20); Calcium,Total 8.7 mg/dL (8.5-10.1); Chloride 108 mmol/L (98-107); Cholesterol 195 mg/dL (200); EST Glomerular Filtration Rate 92 mL/min (>60); Est Glom Filt Rate - Afr Amer 112 mL/min (>60); Globulin 3.5 g/dL (2.2-4.2); Glucose 214 mg/dL (74-106); High Density Lipoprotein 51 mg/dL; Potassium 4.2 mmol/L (3.5-5.1); Protein, Total 6.8 g/dL (6.4-8.2); Sodium Level 138 mmol/L (136-145); Thyroid Stim Hormone (TSH) 2.07 uIU/mL (0.358-3.74); Triglycerides 107 mg/dL; Very Low Density Lipoprotein 21 mg/dL (5-40)
[2023-08-26 10:37] LABS: Microalbumin,Random Urine 42.2 mg/L (NO RANGE EST.); Microalbumin:Creatinine Ratio 30.6 mg/g CRE (<30 mg/g CRE)
== END | disposition home or self-care (01) ==
LOC: LAB 08:50
PROVIDERS: PCP Family Medicine; Referring Provider Nurse Practitioner Family; Visit Provider Nurse Practitioner Family
DX: E10.65 Type 1 diabetes mellitus with hyperglycemia (principal)
CPT/HCPCS: 36415; 80053; 80061; 82043; 82306; 82570; 84443

== ENCOUNTER → 2024-06-29 | Outpatient (CLI) | payer BC, SELFPAY ==
[2024-06-29 19:21] LABS: Microalbumin,Random Urine 16.7 mg/L (NO RANGE EST.); Microalbumin:Creatinine Ratio 191.7 mg/g CRE
[2024-06-29 20:46] LABS: Cholesterol 192 mg/dL (<=200); High Density Lipoprotein 56 mg/dL; Low Density Lipoprotein Calc. 116 mg/dL; Triglycerides 100 mg/dL; Very Low Density Lipoprotein 20 mg/dL (5-40); cholesterol:hdl ratio screen 3.45
[2024-06-29 20:48] LABS: ALB/GLOB Ratio 1.3 RATIO (0.9-2.4); AST(SGOT) 19 U/L (<=31); Alanine Aminotransfer ALT/SGPT 14 U/L (<=34); Albumin, Serum 4.2 g/dL (3.5-5.0); Alkaline Phosphatase 78 U/L (35-104); Anion Gap 14 (5-15); BUN 14 mg/dL (4-19); BUN/Creat Ratio 18.5 RATIO (10-20); Carbon Dioxide 21.5 mmol/L (21.0-32.0); Chloride 100 mmol/L (98-108); Creatinine, Serum 0.75 mg/dL (0.70-1.20); EST Glomerular Filtration Rate 112 (>60); Globulin 3.2 g/dL (2.2-4.2); Glucose 155 mg/dL (70-99); Potassium 3.9 mmol/L (3.3-5.1); Protein, Total 7.3 g/dL (5.9-8.4); Sodium Level 136 mmol/L (133-145); Total Bilirubin < 0.15 mg/dL (0.00-1.30)
[2024-06-30 15:39] LABS: Calcium,Total 9.3 mg/dL (7.6-11.0)
[2024-07-01 04:07] LABS: Thyroid Peroxidase AB 13 IU/mL (0-34)
== END | disposition home or self-care (01) ==
LOC: LAB 15:55
PROVIDERS: PCP Family Medicine; Referring Provider Nurse Practitioner Family; Visit Provider Nurse Practitioner Family
DX: E10.65 Type 1 diabetes mellitus with hyperglycemia (principal)
CPT/HCPCS: 36415; 80053; 80061; 82043; 82306; 82570; 84443; 86376

== ENCOUNTER → 2024-12-28 | Outpatient (CLI) | payer BC, SELFPAY | END | disposition home or self-care (01) | LOC: LAB 08:54 | PROVIDERS: PCP Family Medicine; Referring Provider Nurse Practitioner Family; Visit Provider Nurse Practitioner Family | DX: E03.9 Hypothyroidism, unspecified (principal) | CPT/HCPCS: 36415; 84439; 84443 ==